=== PATIENT | male | born 1965 | race Caucasian/White ===

== ENCOUNTER 2025-02-19 07:10 | Observation (INO) | payer SELFPAY ==
[2025-02-19] VITALS (11 sets, daily range): BP systolic 129–150; BP diastolic 74–93; PULSE 75–88; RESP 13–18; TEMP 36.4–36.8; O2SAT 96–99; BMI 33.5
--- NOTE | ~2025-02-19 | CT_ITS ---
Non-contrast Head CT History: CVA Technique: Axial non-contrast imaging of the brain was performed. Dose reduction technique was used on this scan by utilizing automated exposure control and iterative reconstruction technique. The dose -length product (DLP) was 605.33 mGy-cm. Findings: There is no evidence of intracranial hemorrhage, mass lesion, or acute infarct. Brain par enchyma appears normal. The ventricles and subarachnoid spaces are normal in size. The calvarium ap pears normal. The visualized paranasal sinuses and mastoid air cells are clear. Impression: No significant abnormality seen. Case discussed with Dr. Oconnor at 7:30 AM on 02/19/2025. Reviewed, dictated and finalized at location . Impression: No significant abnormality seen. Case discussed with Dr. Oconnor at 7:30 AM on 02/19/2025.
--- NOTE | ~2025-02-19 | CT_ITS ---
CT ANGIOGRAM NECK AND HEAD History: CVA. Technique: Serial spiral axial images through the head and neck were obtained during arterial phase I V injection of 100 cc of Omnipaque 350. 3-D postprocessing and MIP images were then reconstructed on the remote workstation. Dose reduction technique was used on this scan by utilizing automated exposur e control and iterative reconstruction technique. The dose-length product (DLP) was 1154.24 mGy-cm. CTA neck findings: Bilateral vertebral arteries were patent. Bilateral common carotid, internal cuenca tid, and external carotid arteries are patent. There are small calcified plaques at the proximal righ t internal carotid artery without stenosis. There are also calcified plaques at the proximal left int ernal carotid artery, again without stenosis. No large vessel occlusion or stenosis seen. The proxima l right internal carotid artery demonstrates 0% stenosis relative to the normal distal artery lumen d iameter. The proximal left internal carotid artery demonstrates 0% stenosis relative to the normal di stal artery lumen diameter. CTA head findings: Distal vertebral arteries, basilar artery, and posterior cerebral arteries are pat ent. Distal internal carotid arteries, middle cerebral arteries, and anterior cerebral arteries are p atent. No large vessel occlusion or stenosis. No aneurysm. Impression: No significant vascular abnormality seen. Reviewed, dictated and finalized at location M. Impression: No significant vascular abnormality seen.
--- NOTE | ~2025-02-19 | MR_ITS ---
EXAMINATION: MR brain/brain stem wo con DATE: 02/19/2025 15:41 INDICATION: Left-sided numbness TECHNIQUE: Magnetic resonance imaging (MRI) of the brain and brainstem was performed without intraven ous contrast. Sequences included sagittal and axial T1-weighted SE, axial diffusion-weighted FS SE, a xial 3D SWAN, axial T2-weighted FLAIR, and axial T2-weighted FSE. Apparent diffusion coefficient (ADC ) maps were created. COMPARISON: Head CT and CT angiogram dated 03/15 FINDINGS: There are no areas of restricted diffusion to suggest acute infarction. No intracranial hemorrhage or abnormal intracranial mass lesion. There are no intraparenchymal signal abnormalities seen on the ot her pulse sequences. The ventricles are symmetric and normal in size. There are no abnormal extra-axi al fluid collections. Flow voids are seen in the cerebral arteries on the T2-weighted sequences consi stent with their expected patency. Visualized orbits and soft tissues are unremarkable. IMPRESSION: 1. Normal brain. No acute intracranial process. Reviewed, dictated and finalized at location B.
--- NOTE | ~2025-02-19 | XR_ITS ---
XR chest 1V portable 02/19/2025 08:02 Indication: CVA. Left-sided weakness. Procedure: AP portable chest Comparison: No prior studies for comparison. Findings: Status post median sternotomy for CABG. Cardiomegaly. Left basilar consolidation. No pleura l effusion or pneumothorax. No acute osseous abnormality. Impression: 1: Left basilar airspace disease may represent pneumonia and/or atelectasis. 2: Cardiomegaly. Reviewed, dictated and finalized at location A. Impression: 1: Left basilar airspace disease may represent pneumonia and/or atelectasis. 2: Cardiomegaly.
--- NOTE | 2025-02-19 07:14 | ECG_ITS ---
Test Date: 2025-02-19 07:35:24 Measurements Intervals Lillian Rate: 80 P: 43 IN: 172 QRS: -39 QRSD: 117 T: 18 QT: 441 QTc: 509 Interpretive Statements SINUS RHYTHM POSSIBLE RIGHT VENTRICULAR CONDUCTION DELAY [RSR (QR) IN V1/V2] MINIMAL VOLTAGE CRITERIA FOR LVH, CONSIDER NORMAL VARIANT [MEETS CRITERIA IN ONE OF: R(aVL), S(V1), R(V5), R(V5/V6)+S(V1)] POSSIBLE ANTERIOR MYOCARDIAL INFARCTION , PROBABLY OLD [30 ms Q WAVE IN V3/V4, OR R < 0.2 mV IN V4] No previous ECG available for comparison Electronically Signed On 02-20-2025 18:56:23 CDT by Gracie Vides
[2025-02-19 07:16] LABS: Glucose Point of Care 152 mg/dl (65-105)
--- NOTE | 2025-02-19 07:20 | ED.NEUROSD ---
HPI - Neuro Symptoms/Deficit General Chief Complaint: Suspected CVA Stated Complaint: 0620 LKW L arm&cheek numb, numb tongue, SMITH Time Seen by Provider: 02/19/25 07:19 History of Present Illness HPI Narrative: Patient 59-year-old gentleman presents emergency department with chief complaint of left-sided numbness. Patient reports around 620-630 this morning he had onset of numbness on the left side of his body including left side of his tongue patient states that he felt as though his unsteady on his feet whenever he tried to walk and reports that he has had a headache with this as well patient reports he has an extensive cardiac history reports that he is on Brilinta reports no prior history of stroke Related Data Allergies Allergy/AdvReac Type Severity Reaction Status Date / Time No Known Allergies Allergy Verified 02/19/25 07:13 Review of Systems Review of Systems: A 10 system review of systems was completed on the patient and is negative except for what is stated in the HPI. Nursing and ancillary documentation was reviewed. Exam Narrative: GENERAL: Well-appearing, well-nourished, and in no acute distress. HEAD: Normocephalic, atraumatic. EYES: PERRLA and EOMI. ENT: Nares clear, no rhinorrhea or epistaxis. Mucous membranes moist. NECK: Supple. CHEST: Clear to auscultation. No respiratory distress. HEART: Regular rate and rhythm. No murmur heard. Normal peripheral pulses. ABDOMEN: Soft, nontender, nondistended, normal active bowel sounds. EXTREMITIES: Normal range of motion. No edema. SKIN: Warm, dry, no rash. NEURO: No focal deficits except for slight decrease in sensation on the left upper arm and left face. Alert and oriented x3. PSYCH: Normal mood and affect. Course Vital Signs Vital signs: Vital Signs Temperature 36.6 C 02/19/25 07:32 Pulse Rate 80 02/19/25 07:32 Respiratory Rate 14 02/19/25 07:32 Blood Pressure 150/93 H 02/19/25 07:32 Pulse Oximetry 99 02/19/25 07:32 Oxygen Delivery Room Air 02/19/25 07:32 Temperature 36.6 C 02/19/25 07:32 Pulse Rate 75 02/19/25 08:50 Respiratory Rate 13 02/19/25 08:50 Blood Pressure 136/78 02/19/25 08:50 Pulse Oximetry 96 02/19/25 08:50 Oxygen Delivery Room Air 02/19/25 07:32 MDM - Neuro Symptoms/Deficit MDM Narrative Medical decision making narrative: Differential diagnosis include CVA, vertigo, electrolyte abnormality, Patient is currently NIH 0 the patient does have a altered sensation on the left side of the body but no change an actual sensation. Patient was able to ambulate with a steady 8 given the minimal symptoms with patient having NIH is 0 currently the patient does not meet thrombolytics criteria. The case was discussed with Neurology locally who also agreed the patient is not a thrombolytics candidate patient has no large vessel occlusion on CTA head and neck and recommended admitting the patient for observation locally Lab Data 02/19/25 07:20 02/19/25 07:24 Labs: Lab Results 02/19/25 02/19/25 02/19/25 Range/Units 07:14 07:20 07:24 WBC 5.0 (4.5-10.0) K/mm3 RBC 4.61 (4.6-6.20) M/mm3 Hgb 15.5 (14.0-18.0) g/dL Hct 45.5 (42.0-52.0) % MCV 98.7 (80-100) fl MCH 33.6 (26-34) pg MCHC 34.1 (32-36) g/dl RDW 12.4 (11.5-14.5) % Plt Count 171 (150-375) k/mm3 MPV 10.3 (7.4-10.4) fl Immature Gran % (Auto) 0.2 (0-0.5) % Neut % (Auto) 66.1 (45.5-73.1) % Lymph % (Auto) 22.5 (18.3-44.2) % [place] % (Auto) 7.2 (2.6-8.5) % Eos % (Auto) 3.2 (0-4.4) % Baso % (Auto) 0.8 (0.2-1.2) % Lymph # (Auto) 1.13 (0.9-3.2) K/mm3 [place] # (Auto) 0.4 (0.1-0.6) K/mm3 Eos # (Auto) 0.2 (0-0.3) K/mm3 Baso # (Auto) 0.0 (0.0-0.1) K/mm3 Abs Immat Gran (auto) 0.01 (0.00-0.031) K/mm3 Absolute Neuts (auto) 3.3 (1.3-6.7) K/mm3 Absolute Nucleated RBC 0.000 (0.0-0.012) K/mm3 Nucleated RBC % 0.0 (0.0-0.2) % PT 13.4 (11.1-14.7) Seconds INR 1.0 APTT 27.5 (22.3-36.8) Seconds Sodium 140 (137-145) mmol/L Potassium 4.1 (3.4-5.0) mmol/L Chloride 103 (98-107) mmol/L Carbon Dioxide 25 (22-30) mmol/L Anion Gap 12 (4-12) mmol/L BUN 14 (9-20) mg/dL Creatinine 1.04 1.20 (0.7-1.3) mg/dL Estim Creat Clear Calc 75 Not Reportable ml/min Estimated GFR > 60 > 60 (59 - ) Glucose 152 H (65-110) mg/dL POC Capillary Glucose 152 H (65-105) mg/dl Calcium 9.3 (8.4-10.2) mg/dL Total Bilirubin 0.8 (0.2-1.3) mg/dL AST 34 (17-59) U/L ALT 42 (6-50) U/L Alkaline Phosphatase 70 (38-126) U/L Troponin I < 0.012 (0.000-0.034) ng/mL Total Protein 7.0 (6.3-8.2) g/dL Albumin 4.6 (3.5-5.1) g/dL Discharge Plan Discharge Clinical Impression: Alterations of sensations Patient Disposition: Still a Patient Condition: Stable Patient Language: [place] Follow-up/Referrals: UNKNOWN,DOCTOR [Primary Care Provider] - Time of Disposition: 08:03 Quality Stroke Date of last known normal: 02/19/25 Time of last known normal: 06:20
[2025-02-19 07:28] LABS: Estimated Glomerular Filt Rate > 60
[2025-02-19 07:34] LABS: Basophils Percent Auto 0.8 % (0.2-1.2); Eosinophils Absolute Auto 0.2 K/mm3 (0-0.3); Eosinophils Percent Auto 3.2 % (0-4.4); Hematocrit 45.5 % (42.0-52.0); Hemoglobin 15.5 g/dL (14.0-18.0); Immature Granulocyte Absolute 0.01 K/mm3 (0.00-0.031); Immature Granulocyte Percent A 0.2 % (0-0.5); Lymphocytes Absolute Auto 1.13 K/mm3 (0.9-3.2); Lymphocytes Percent Auto 22.5 % (18.3-44.2); Mean Corpuscular HGB Conc 34.1 g/dl (32-36); Mean Corpuscular Hemoglobin 33.6 pg (26-34); Mean Corpuscular Volume 98.7 fl (80-100); Mean Platelet Volume 10.3 fl (7.4-10.4); Monocytes Absolute Auto 0.4 K/mm3 (0.1-0.6); Monocytes Percent Auto 7.2 % (2.6-8.5); Neutrophils Absolute Auto 3.3 K/mm3 (1.3-6.7); Neutrophils Percent Auto 66.1 % (45.5-73.1); Platelet Count Result 171 k/mm3 (150-375); Red Blood Count 4.61 M/mm3 (4.6-6.20); Red Cell Distribution Width 12.4 % (11.5-14.5)
[2025-02-19 07:37] LABS: Alanine Aminotransferase 42 U/L (6-50); Albumin Level 4.6 g/dL (3.5-5.1); Alkaline Phosphatase 70 U/L (38-126); Anion Gap 12 mmol/L (4-12); Aspartate Amino Transferase 34 U/L (17-59); Bilirubin,Total 0.8 mg/dL (0.2-1.3); Blood Urea Nitrogen 14 mg/dL (9-20); Calcium 9.3 mg/dL (8.4-10.2); Carbon Dioxide 25 mmol/L (22-30); Chloride 103 mmol/L (98-107); Estimated CRCL calculation 75 ml/min; Estimated Glomerular Filt Rate > 60; Glucose 152 mg/dL (65-110); Potassium 4.1 mmol/L (3.4-5.0); Sodium 140 mmol/L (137-145)
[2025-02-19 07:40] LABS: Prothrombin Time 13.4 Seconds (11.1-14.7)
[2025-02-19 07:41] LABS: Partial Thromboplastin Time 27.5 Seconds (22.3-36.8)
[2025-02-19 07:49] LABS: Troponin I < 0.012 ng/mL (0.000-0.034)
--- OUTSIDE RECORDS SUMMARY | 2025-02-19 08:35 | XMS_ITS | Patient Health Record ---
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 Role Phone Richkush Chago Unavailable [phone] Kahlil Perez Unavailable [phone] Kathie Doyle Unavailable [phone] Mony Romero Unavailable [phone] Allergies No Known Allergies Results Component Value Reference Range Notes UDT Reviewed date:10/02/2024 10:19:49 AM Interpretation: Performing Lab: Notes/Report: THC POS 0 - 50 ng/ml Cocaine NEG 0 - 300 ng/ml Amphetamine NEG 0 - 1000 ng/ml Buprenorphine (BUP) NEG 0 - 10 ng/ml Secobarbital (Bar) NEG 0 - 300 ng/ml Oxazepam (BZO) NEG 0 - 300 ng/ml 7-mqtgbummam-8,7-bffmgqyg-1,3-diphenylpyrrolidine (SARAH P) NEG 0 - 300 ng/ml Methamphetamine (MET) NEG 0 - 1000 ng/ml Methylenedioxymethamphetamine (MDMA) NEG 0 - 500 ng/ml Morphine (MOP 300/[id number]) NEG 0 - 300 ng/ml Methadone (MTD) NEG 0 - 300 ng/ml Phencyclidine (PCP) NEG 0 - 25 ng/ml Nortriptyline (TCA) NEG 0 - 1000 ng/ml Oxycodone NEG 0 - 300 ng/ml x NEG 0 - 300 ng/ml Reason For Referral No Information Medications Medication SIG (Take, Route, Frequency, Duration) Notes Start Date End Date Status Metoprolol Succinate ER 100 MG TAKE 1 TABLET BY MOUTH EVERY DAY Oral for 90 Days Unknown Fenofibrate 200 MG 1 capsule with a allison l Orally Once a day Unknown hydrOXYzine HCl 25 MG 1 tablet as needed Orally three times a day for 90 days As needed 10/02/2024 Unknown metFORMIN HCl ER 500 MG TAKE 2 TABLETS B Y MOUTH TWICE DAILY Oral for 90 Days Unknown Pantoprazole Sodium 40 MG TAKE 1 TABLET BY MOUTH EVERY DAY Oral for 90 Days Unknown Ezetimibe 10 MG Oral for 90 Days Unknown Brilinta 90 MG TAKE ONE TABLET BY M OUTH TWICE A DAY Oral for 90 Days Unknown busPIRone HCl 10 MG 1 tablet Oral three times a day for 90 days 03/24/2025 Unknown Rosuvastatin Calcium 20 MG Oral for 90 Days Unknown Aspirin 81 81 MG 1 tablet Orally Once a day Unknown Ozempic (2 MG/DOSE) 8 MG/3ML INJECT 2MG UNDER THE SKIN ONCE A WEEK Subcutaneous for 28 Days Unknown Enalapril Maleate 10 MG TAKE 2 TABLETS B Y MOUTH DAILY Oral for 90 Days Unknown traZODone HCl 50 MG 1 tablet at bedtime as needed Orally Once a day for 90 days Unknown Ranolazine ER 1000 MG TAKE 1 TABLET BY M OUTH TWICE DAILY Oral Twice a day for 90 days Unknown Escitalopram Oxalate 20 MG 1 tablet Oral Once a day for 90 days Unknown Jardiance 10 MG TAKE 1 TABLET BY FEDERICO TH DAILY Oral for 30 Days Unknown Social History Tobacco Use: Social History Observation Description Date Details (start date - stop date) Former Smoker NA - NA Sex Assigned At : Social History Observation Description Sex Assigned At Male Household Question Answer Notes Marital status: Number of adults in household: 2 Tobacco Control (Standard) Question Answer Notes Tobacco use: Former smoker Additional Findings: Tobacco non-user Nonsmoker for medical reasons AUDIT-C (Standard) Question Answer Notes Did you have a drink contain ing alcohol in the past year? Yes How often did you have six o r more drinks on one occasion in the past year? 4 or more times a week (4 points) How many drinks did you have on a typical day when you were drinking in the past year? 5 or 6 drinks (2 points) How often did you have a dri nk containing alcohol in the past year? Daily or almost daily (4 points) Problems Problem Type SNOMED Code ICD Code Onset Dates Problem Status W/U Status Risk Notes Problem Alcohol dependence (15343233) Alcohol dependence, uncomplicated (F10.20) Active confirmed Problem 8991303 Primary insomnia (F51.01) Active confirmed Problem Generalized anxiety disorder (25444192) RACHANA (generalized anxiety disorder) (F41.1) Active confirmed Problem 44587519 Severe episode o f recurrent major depressive disorder, without psychotic features (F33.2) Active confirmed Problem 32930346 MDD (major depressive disorder), recurrent episode, moderate (F33.1) Active confirmed Problem Nondependent cannabis abuse (276301247) Marijuana use (F12.90) Active confirmed Problem Alcohol abuse (78868516) Alcohol abuse (F10.10) Active confirmed Vital Signs Heart Rate 82 /min 12/26/2024 Blood pressure diastolic 83 mm Hg 12/26/2024 Weight-kg 95.26 kg 12/26/2024 Blood pressure systolic 134 mm Hg 12/26/2024 Weight 210.0 lbs 12/26/2024 Encounters Encounter Location Date Provider Diagnosis [facility] [address] [facility] [address] [place] [address] 10/02/2024 [facility] Severe episode of recurrent major depressive disorder, without psychotic features F33.2 ; RACHANA (generalized anxiety disorder) F41.1 ; Primary insomnia F51.01 and Marijuana use F12.90 [facility] [address] [address] 10/03/2024 Mony Hinderliter RACHANA (generalized anxiety disorder) F41.1 ; Severe episode of recurrent major depressive disorder, without psychotic features F33.2 ; Marijuana use F12.90 ; Primary insomnia F51.01 and Alcohol abuse F10.10 [facility] [address] [address] 10/06/2024 Mony Hinderliter Severe episode of recurrent major depressive disorder, without psychotic features F33.2 ; RACHANA (generalized anxiety disorder) F41.1 and Alcohol abuse F10.10 [employer] [place] [address] 10/20/2024 Mony Hinderliter Severe episode of recurrent major depressive disorder, without psychotic features F33.2 ; RACHANA (generalized anxiety disorder) F41.1 ; Alcohol abuse F10.10 and Marijuana use F12.90 [employer] [place] [address] 10/28/2024 Mony Hinderliter Severe episode of recurrent major depressive disorder, without psychotic features F33.2 ; RACHANA (generalized anxiety disorder) F41.1 and Alcohol abuse F10.10 [facility], [employer] [address] [place] [address] 11/05/2024 Chago Villanuevab RACHANA (generalized anxiety disorder) F41.1 ; MDD (major depressive disorder), recurrent episode, moderate F33.1 ; Primary insomnia F51.01 ; Alcohol abuse F10.10 and Marijuana use F12.90 [facility] [employer] [address] [place] [address] 11/19/2024 Mony Hinderliter Severe episode of recurrent major depressive disorder, without psychotic features F33.2 ; RACHANA (generalized anxiety disorder) F41.1 ; Alcohol abuse F10.10 and Marijuana use F12.90 [facility], [employer] [address] [place] [address] 12/02/2024 Mony Hinderliter Severe episode of recurrent major depressive disorder, without psychotic features F33.2 ; RACHANA (generalized anxiety disorder) F41.1 and Alcohol abuse F10.10 [facility], [employer] [address] [place] [address] 12/19/2024 Mony Hinderliter [facility], [employer] [address] [place] [address] 12/22/2024 Mony Hinderliter Severe episode of recurrent major depressive disorder, without psychotic features F33.2 ; RACHANA (generalized anxiety disorder) F41.1 ; Alcohol abuse F10.10 ; Marijuana use F12.90 and Primary insomnia F51.01 [employer] [address] [place] [address] 12/24/2024 Kathieluis Kleinag Severe episode of recurrent major depressive disorder, without psychotic features F33.2 ; RACHANA (generalized anxiety disorder) F41.1 ; Primary insomnia F51.01 and Alcohol dependence, uncomplicated F10.20 [employer] [address] [place] [address] 12/26/2024 Kahlil Perez Major depressive disorder, recurrent severe without psychotic features F33.2 and Generalized anxiety disorder F41.1 [facility], [employer] [address] [place] [address] 01/02/2025 Mony Romero Severe episode of recurrent major depressive disorder, without psychotic features F33.2 ; Alcohol abuse F10.10 ; RACHANA (generalized anxiety disorder) F41.1 and Encounter for screening for depression Z13.31 [facility], [place] [address] [place] [address] 01/08/2025 Kahlil Perez Encounter for screening for depression Z13.31 ; Major depressive disorder, recurrent severe without psychotic features F33.2 and Generalized anxiety disorder F41.1 [facility], [facility] [address] [place] [address] 01/23/2025 Kahlil Perez Encounter for screening for depression Z13.31 ; Major depressive disorder, recurrent severe without psychotic features F33.2 and Generalized anxiety disorder F41.1 [facility], [facility] [address] [place] [address] 02/18/2025 Kathie Doyle [facility], [facility] [address] [place] [address] 10/07/2024 Chago Clubb [facility], [facility] [address] [place] [address] 10/28/2024 Chago Clubb [facility], [facility] [address] [place] [address] 11/03/2024 Chago Clubb [facility], [facility] [address] [place] [address] 11/10/2024 Chago Clubb [facility], [facility] [address] [place] [address] 12/10/2024 Chago Clubb [facility], [facility] [address] [place] [address] 12/12/2024 Chago Clubb [facility], [facility] [address] [place] [address] 12/02/2024 Chago Clubb [facility], [facility] [address] [place] [address] 12/08/2024 Chago Clubb [facility], [facility] [address] [place] [address] 12/15/2024 Chago Clubb [facility], [facility] [address] [place] [address] 01/02/2025 Chago Clubb [facility], [facility] [address] [place] [address] 01/02/2025 Chago Clubb [facility], [facility] [address] [place] [address] 01/06/2025 Chago Clubb [facility], [facility] [address] [place] [address] 01/07/2025 [facility] Assessments Encounter Date Diagnosis (ICD Code) Assessment Notes Treatment Notes Treatment Clinical Notes Section Notes 12/24/2024 Severe episode of recurrent major depressive disorder, without psychotic features (ICD-10 - F33.2) 12/26/2024 Major depressive disorder, recurrent severe without psychotic features (ICD-10 - F33.2) 12/26/2024 Generalized anxiety disorder (ICD-10 - F41.1) 01/02/2025 Severe episode of recurrent major depressive disorder, without psychotic features (ICD-10 - F33.2) 1. Suicidal Ideation - Patient reports passive suicidal ideation without intent or plan, expressing feeling that he didn't really believe that [he] deserved to live any longer - Denies active suicidal thoughts or intentions to harm himself, stating I'm nowhere near, would never do something to hurt myself - Recent interaction with [employer] resulted in statement about putting a gun in mouth, leading to police wellness check - Incident appears to be impulsive verbal outburst rather than genuine threat, as patient states no weapons ownership -Address self sabotaging behaviors 2. Anger Management Issues - Demonstrates ongoing difficulties with anger management, evidenced by recent outbursts - Describes an explosion during interaction with [employer], comparing to September incident with mechanical project manager - Expresses concern about ability to control anger, stating I can't act like this - Worries about potentially blowing up at work -Engage in stress management skills including regular exercise 3. Alcohol Use - Reports recent alcohol use as coping mechanism - Attempted to stop drinking but relapsed after 24-48 hours following stressful event - Acknowledges problematic drinking, stating I didn't fall off the wagon, I jumped headfirst off the wagon -Encourage attendance to SMART Recovery or AA meetings 4. 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 Anxiety and Panic Symptoms - Reports experiencing ongoing panic symptoms for past three days, describing it as a little panic thing - Taking prescribed medications about an hour before session to manage symptoms - Anxiety appears exacerbated by rumination on current life stressors -Engage in anxiety management skills including TIP (Temperature, Intense exercise, Paced breathing, Paired muscle relaxation) 6. Relationship Stress - Reports has been in bed for two days following police wellness check incident - Describes as embarrassed and not engaging in household activities - Feels conflicted about marital vows and ability to support through her mental health challenges -Kamaljit states he would like to apologize to his 01/02/2025 Alcohol abuse (ICD-10 - F10.10) 1. Suicidal Ideation - Patient reports passive suicidal ideation without intent or plan, expressing feeling that he didn't really believe that [he] deserved to live any longer - Denies active suicidal thoughts or intentions to harm himself, stating I'm nowhere near, would never do something to hurt myself - Recent interaction with [employer] resulted in statement about putting a gun in mouth, leading to police wellness check - Incident appears to be impulsive verbal outburst rather than genuine threat, as patient states no weapons ownership -Address self sabotaging behaviors 2. Anger Management Issues - Demonstrates ongoing difficulties with anger management, evidenced by recent outbursts - Describes an explosion during interaction with [employer], comparing to September incident with mechanical project manager - Expresses concern about ability to control anger, stating I can't act like this - Worries about potentially blowing up at work -Engage in stress management skills including regular exercise 3. Alcohol Use - Reports recent alcohol use as coping mechanism - Attempted to stop drinking but relapsed after 24-48 hours following stressful event - Acknowledges problematic drinking, stating I didn't fall off the wagon, I jumped headfirst off the wagon -Encourage attendance to SMART Recovery or AA meetings 4. 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 Anxiety and Panic Symptoms - Reports experiencing ongoing panic symptoms for past three days, describing it as a little panic thing - Taking prescribed medications about an hour before session to manage symptoms - Anxiety appears exacerbated by rumination on current life stressors -Engage in anxiety management skills including TIP (Temperature, Intense exercise, Paced breathing, Paired muscle relaxation) 6. Relationship Stress - Reports has been in bed for two days following police wellness check incident - Describes as embarrassed and not engaging in household activities - Feels conflicted about marital vows and ability to support through her mental health challenges -Kamaljit states he would like to apologize to his 01/08/2025 Major depressive disorder, recurrent severe without psychotic features (ICD-10 - F33.2) 12/24/2024 RACHANA (generalized anxiety disorder) (ICD-10 - F41.1) 01/08/2025 Encounter for screening for depression (ICD-10 - Z13.31) 01/23/2025 Major depressive disorder, recurrent severe without psychotic features (ICD-10 - F33.2) 01/23/2025 Encounter for screening for depression (ICD-10 - Z13.31) 10/02/2024 RACHANA (generalized anxiety disorder) (ICD-10 - F41.1) 1. Major Depressive Disorder - Patient reports depression at 8-9 out of 10 - Plan: Increase escitalopram to 20 mg daily. Encourage him to engage in therapy. Recommend lifestyle changes, including exercise and adopting a Mediterranean diet. 2. Generalized Anxiety Disorder - Patient reports high anxiety levels and frequent panic attacks - Plan: Increase BuSpar to three times a day. Prescribe hydroxyzine as needed for anxiety, with caution for potential side effects. Encourage him to engage in therapy. Recommend lifestyle changes, including exercise and adopting a Mediterranean diet. 3. Panic Disorder - Patient reports panic attacks lasting up to 4 hours, occurring in the middle of the night and every morning - Plan: Continue BuSpar three times a day. Prescribe hydroxyzine as needed for anxiety, with caution for potential side effects. Encourage him to engage in therapy. Educate him on recognizing panic attacks and utilizing coping strategies. 4. Insomnia - Patient reports getting a solid 8 hours of sleep - Plan: Continue trazodone 50 mg at night. Encourage him to maintain a consistent sleep schedule and practice good sleep hygiene. 5. Coronary Artery Disease - Patient reports history of CABG in 2020 and multiple stent placements - Plan: Continue current cardiac medications as prescribed. Encourage him to engage in regular exercise and adopt a Mediterranean diet. Recommend regular follow-up with neon glass bender. 6. Type 2 Diabetes Mellitus - Patient reports irregular use of Ozempic and Jardiance due to supply issues - Plan: Continue metformin, Ozempic, and Jardiance as prescribed. Encourage him to discuss medication adjustments with his primary care provider. Recommend adopting a Mediterranean diet and engaging in regular exercise. 7. Hypertension - Plan: Continue metoprolol and enalapril as prescribed. Encourage him to monitor blood pressure regularly at home. Recommend lifestyle changes, including exercise and adopting a Mediterranean diet. 8. Dyslipidemia - Plan: Continue rosuvastatin, ezetimibe, and fenofibrate as prescribed. Encourage him to adopt a Mediterranean diet and engage in regular exercise. 9. Gastroesophageal Reflux Disease - Plan: Continue pantoprazole as prescribed. Educate him on recognizing symptoms of acid reflux and differentiating from cardiac chest pain. 10. Alcohol Use Disorder - Patient reports drinking too much - Plan: Encourage him to seek therapy and support for alcohol cessation. Educate him on the negative effects of alcohol on mental health and overall well-being. 11. Coping Skills and Stress Management - Patient reports using food as a coping mechanism and binge eating - Plan: Encourage him to engage in therapy to develop healthy coping strategies. Recommend regular exercise and adopting a Mediterranean diet as part of stress management. Follow-up: - Schedule a follow-up appointment in 4-6 weeks to assess the patient's progress and medication adjustments - Encourage him to contact the clinic or healthcare professional if symptoms worsen or new concerns arise - Provide information about the [facility] crisis hotline for immediate mental health support 10/02/2024 Severe episode of recurrent major depressive disorder, without psychotic features (ICD-10 - F33.2) 1. Major Depressive Disorder - Patient reports depression at 8-9 out of 10 - Plan: Increase escitalopram to 20 mg daily. Encourage him to engage in therapy. Recommend lifestyle changes, including exercise and adopting a Mediterranean diet. 2. Generalized Anxiety Disorder - Patient reports high anxiety levels and frequent panic attacks - Plan: Increase BuSpar to three times a day. Prescribe hydroxyzine as needed for anxiety, with caution for potential side effects. Encourage him to engage in therapy. Recommend lifestyle changes, including exercise and adopting a Mediterranean diet. 3. Panic Disorder - Patient reports panic attacks lasting up to 4 hours, occurring in the middle of the night and every morning - Plan: Continue BuSpar three times a day. Prescribe hydroxyzine as needed for anxiety, with caution for potential side effects. Encourage him to engage in therapy. Educate him on recognizing panic attacks and utilizing coping strategies. 4. Insomnia - Patient reports getting a solid 8 hours of sleep - Plan: Continue trazodone 50 mg at night. Encourage him to maintain a consistent sleep schedule and practice good sleep hygiene. 5. Coronary Artery Disease - Patient reports history of CABG in 2020 and multiple stent placements - Plan: Continue current cardiac medications as prescribed. Encourage him to engage in regular exercise and adopt a Mediterranean diet. Recommend regular follow-up with neon glass bender. 6. Type 2 Diabetes Mellitus - Patient reports irregular use of Ozempic and Jardiance due to supply issues - Plan: Continue metformin, Ozempic, and Jardiance as prescribed. Encourage him to discuss medication adjustments with his primary care provider. Recommend adopting a Mediterranean diet and engaging in regular exercise. 7. Hypertension - Plan: Continue metoprolol and enalapril as prescribed. Encourage him to monitor blood pressure regularly at home. Recommend lifestyle changes, including exercise and adopting a Mediterranean diet. 8. Dyslipidemia - Plan: Continue rosuvastatin, ezetimibe, and fenofibrate as prescribed. Encourage him to adopt a Mediterranean diet and engage in regular exercise. 9. Gastroesophageal Reflux Disease - Plan: Continue pantoprazole as prescribed. Educate him on recognizing symptoms of acid reflux and differentiating from cardiac chest pain. 10. Alcohol Use Disorder - Patient reports drinking too much - Plan: Encourage him to seek therapy and support for alcohol cessation. Educate him on the negative effects of alcohol on mental health and overall well-being. 11. Coping Skills and Stress Management - Patient reports using food as a coping mechanism and binge eating - Plan: Encourage him to engage in therapy to develop healthy coping strategies. Recommend regular exercise and adopting a Mediterranean diet as part of stress management. Follow-up: - Schedule a follow-up appointment in 4-6 weeks to assess the patient's progress and medication adjustments - Encourage him to contact the clinic or healthcare professional if symptoms worsen or new concerns arise - Provide information about the [facility] crisis hotline for immediate mental health support 10/03/2024 RACHANA (generalized anxiety disorder) (ICD-10 - F41.1) Marital Status: Living Arrangement: lives with Judith and two dogs. Children: 2 adult children Support System: a couple of good friends. Noted that has brought up divorce as a possibility. 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 History: Denied Legal History: Denied Family History of MH/RADHA: None reported Physical Medical Conditions: triple bypass surgery and multiple stints. Diabetes. Concerns with blood pressure. Sleep apnea Spiritual Beliefs: None that I would put a label on Suicidal Ideation/Self Harm: Denied Homicidal Ideation: Denied Access to means (firearms etc): Denied Chief Complaint: my attitude about everything has gone completely downhill. I really don't care if I lose my job or end up homeless. I am out of sorts. Anxiety: Notes feelings of something bad will happen if he even goes near his work computer. History of panic attacks 1-2x a year. Reported that sometimes they will now last overnight, heart racing, thoughts of , difficulty breathing, headaches, feels his face gets hot. Avoiding anxious thoughts. Depression: Apathetic mood, indifferent. Isolation for the past few years at work due to working from home. Believes that he is self-sabotaging. Anger: Noted sending impulsive emails that called another co-worker an idiot. Denied yelling or physical altercations. Psychosis: Denied Sleep: Sleeps 8 hours a night. Has sleep apnea and noted that bipap machine is dysregulated and he will need to go in for another sleep study. Appetite: Reported eating overeating. States he will eat large meals and constantly eat in between. Suspects eating [id number] calories a day and not gaining weight. Substance Use (type, last use, amount, frequency, withdrawal symptoms): alcohol, 5 nights a week 4-5 drinks. Marijuana on occasion 1x a week, notes he does not feel the need to use often. Gambling/Other Addictive Behaviors: Denied concerns with gambling. Eating is a concern. ADLs (Hygiene, Chores, Cooking, Shopping): Reports difficulty in completing tasks. Reports the room that he is sleeping in is a mess . Noted not showering as often as he used to. Interests/Skills/H obbies: Math is a strength. Playing pool including in tournaments. Goal(s) for Therapy: I have no idea. I've just thought about coming to therapy. I know there is something wrong that I am not doing things correctly. I need to work on me. 1. Major Depressive Disorder - Continue with the current medication regimen as directed by the general practitioner. - Schedule a follow-up appointment before the to explore job-related plans and strategies for moving forward. - Encourage establishing a daily routine and setting small, achievable goals. 2. Anxiety and Panic Attacks - Maintain the prescribed dosage of buspirone, taking it three times daily. - Consider the addition of relaxation techniques, such as deep breathing exercises and mindfulness practices, to manage symptoms. - Monitor the frequency and severity of panic attacks during subsequent appointments. 3. Alcohol Use Disorder - Advise a reduction in alcohol consumption, moving towards abstinence. - Discuss the potential benefits of attending support groups or seeking additional resources for alcohol use management. - Track progress in reducing alcohol intake in future follow-ups. 4. Sleep Apnea and BiPAP Issues - Recommend scheduling a sleep study to reassess BiPAP settings for optimal treatment. - Encourage adherence to a consistent sleep schedule and the practice of good sleep hygiene. 5. Unhealthy Eating Habits and Weight Gain - Suggest exploring the Mediterranean diet cookbook for healthier meal options. - Advise monitoring portion sizes and being mindful of caloric intake. 6. Sedentary Lifestyle and Lack of Exercise - Recommend finding a gym to establish a regular exercise routine. - Encourage participation in enjoyable physical activities, such as playing pool or gardening. 7. Marital Issues - Promote open communication with the spouse and the consideration of couples therapy to address relationship concerns. - Monitor the impact of marital issues on mental health in subsequent appointments. 8. Job-related Stress and Burnout - Discuss strategies for improving work-life balance and managing job-related stress at the follow-up appointment before . - Encourage contemplation of alternative job options or a temporary leave of absence if deemed necessary. 9. Social Isolation - Encourage maintaining connections with friends and seeking new social opportunities to build a support network. - Monitor progress in enhancing social connections during future follow-ups. 10/03/2024 Severe episode of recurrent major depressive disorder, without psychotic features (ICD-10 - F33.2) Marital Status: Living Arrangement: lives with Judith and two dogs. Children: 2 adult children Support System: a couple of good friends. Noted that has brought up divorce as a possibility. 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 History: Denied Legal History: Denied Family History of MH/RADHA: None reported Physical Medical Conditions: triple bypass surgery and multiple stints. Diabetes. Concerns with blood pressure. Sleep apnea Spiritual Beliefs: None that I would put a label on Suicidal Ideation/Self Harm: Denied Homicidal Ideation: Denied Access to means (firearms etc): Denied Chief Complaint: my attitude about everything has gone completely downhill. I really don't care if I lose my job or end up homeless. I am out of sorts. Anxiety: Notes feelings of something bad will happen if he even goes near his work computer. History of panic attacks 1-2x a year. Reported that sometimes they will now last overnight, heart racing, thoughts of , difficulty breathing, headaches, feels his face gets hot. Avoiding anxious thoughts. Depression: Apathetic mood, indifferent. Isolation for the past few years at work due to working from home. Believes that he is self-sabotaging. Anger: Noted sending impulsive emails that called another co-worker an idiot. Denied yelling or physical altercations. Psychosis: Denied Sleep: Sleeps 8 hours a night. Has sleep apnea and noted that bipap machine is dysregulated and he will need to go in for another sleep study. Appetite: Reported eating overeating. States he will eat large meals and constantly eat in between. Suspects eating [id number] calories a day and not gaining weight. Substance Use (type, last use, amount, frequency, withdrawal symptoms): alcohol, 5 nights a week 4-5 drinks. Marijuana on occasion 1x a week, notes he does not feel the need to use often. Gambling/Other Addictive Behaviors: Denied concerns with gambling. Eating is a concern. ADLs (Hygiene, Chores, Cooking, Shopping): Reports difficulty in completing tasks. Reports the room that he is sleeping in is a mess . Noted not showering as often as he used to. Interests/Skills/H obbies: Math is a strength. Playing pool including in tournaments. Goal(s) for Therapy: I have no idea. I've just thought about coming to therapy. I know there is something wrong that I am not doing things correctly. I need to work on me. 1. Major Depressive Disorder - Continue with the current medication regimen as directed by the general practitioner. - Schedule a follow-up appointment before the to explore job-related plans and strategies for moving forward. - Encourage establishing a daily routine and setting small, achievable goals. 2. Anxiety and Panic Attacks - Maintain the prescribed dosage of buspirone, taking it three times daily. - Consider the addition of relaxation techniques, such as deep breathing exercises and mindfulness practices, to manage symptoms. - Monitor the frequency and severity of panic attacks during subsequent appointments. 3. Alcohol Use Disorder - Advise a reduction in alcohol consumption, moving towards abstinence. - Discuss the potential benefits of attending support groups or seeking additional resources for alcohol use management. - Track progress in reducing alcohol intake in future follow-ups. 4. Sleep Apnea and BiPAP Issues - Recommend scheduling a sleep study to reassess BiPAP settings for optimal treatment. - Encourage adherence to a consistent sleep schedule and the practice of good sleep hygiene. 5. Unhealthy Eating Habits and Weight Gain - Suggest exploring the Mediterranean diet cookbook for healthier meal options. - Advise monitoring portion sizes and being mindful of caloric intake. 6. Sedentary Lifestyle and Lack of Exercise - Recommend finding a gym to establish a regular exercise routine. - Encourage participation in enjoyable physical activities, such as playing pool or gardening. 7. Marital Issues - Promote open communication with the spouse and the consideration of couples therapy to address relationship concerns. - Monitor the impact of marital issues on mental health in subsequent appointments. 8. Job-related Stress and Burnout - Discuss strategies for improving work-life balance and managing job-related stress at the follow-up appointment before the . - Encourage contemplation of alternative job options or a temporary leave of absence if deemed necessary. 9. Social Isolation - Encourage maintaining connections with friends and seeking new social opportunities to build a support network. - Monitor progress in enhancing social connections during future follow-ups. 10/06/2024 RACHANA (generalized anxiety disorder) (ICD-10 - F41.1) 1. Major Depressive Disorder - Continue with the current medication regimen and monitor its effectiveness. - Schedule a follow-up appointment in early October to evaluate the response to medication. - Encourage the establishment of a daily routine to enhance mood and productivity. - Recommend creating distinct work and sleep environments upon returning to work. - Consider a referral to a support group for additional social support. 2. Marital and Family Stressors - Promote open communication with the patient's regarding each other's mental health struggles and needs. - Suggest that the patient's pursue her own mental health evaluation and treatment, considering her family history and present symptoms. - Recommend couples therapy to work through relationship issues and enhance communication. 3. Work-related Stress - Assist the patient in securing additional medical leave through FMLA documentation. - Encourage discussions with HR about commission concerns and to clarify financial expectations. - Explore potential long-term career paths and strategies for achieving work-life balance. 4. Alcohol Use - Keep track of alcohol consumption and support efforts to decrease intake. - If alcohol use escalates, consider recommending a support group or consulting a substance abuse counselor. 5. Nutrition and Lifestyle - Motivate the patient to adopt healthier eating patterns and partake in regular physical activity. - Discuss stress management techniques, including mindfulness and gratitude exercises. Follow-up: - Arrange therapy sessions bi-weekly to assess progress and tackle persistent issues. - Modify the treatment plan as necessary, based on the patient's feedback and changing needs. 10/06/2024 Severe episode of recurrent major depressive disorder, without psychotic features (ICD-10 - F33.2) 1. Major Depressive Disorder - Continue with the current medication regimen and monitor its effectiveness. - Schedule a follow-up appointment in early October to evaluate the response to medication. - Encourage the establishment of a daily routine to enhance mood and productivity. - Recommend creating distinct work and sleep environments upon returning to work. - Consider a referral to a support group for additional social support. 2. Marital and Family Stressors - Promote open communication with the patient's regarding each other's mental health struggles and needs. - Suggest that the patient's pursue her own mental health evaluation and treatment, considering her family history and present symptoms. - Recommend couples therapy to work through relationship issues and enhance communication. 3. Work-related Stress - Assist the patient in securing additional medical leave through FMLA documentation. - Encourage discussions with HR about commission concerns and to clarify financial expectations. - Explore potential long-term career paths and strategies for achieving work-life balance. 4. Alcohol Use - Keep track of alcohol consumption and support efforts to decrease intake. - If alcohol use escalates, consider recommending a support group or consulting a substance abuse counselor. 5. Nutrition and Lifestyle - Motivate the patient to adopt healthier eating patterns and partake in regular physical activity. - Discuss stress management techniques, including mindfulness and gratitude exercises. Follow-up: - Arrange therapy sessions bi-weekly to assess progress and tackle persistent issues. - Modify the treatment plan as necessary, based on the patient's feedback and changing needs. 10/20/2024 RACHANA (generalized anxiety disorder) (ICD-10 - F41.1) 1. Depression - Continue with the current medication regimen and consult the prescribing physician regarding the dosing schedule of the new medication. Chago informed client medication is as needed and should take effect in 20 minutes. - Aim to monitor and reduce excessive napping to improve sleep patterns. - Consider the daily use of a light box for 30 minutes to enhance mood and energy levels. - Encourage engagement in physical activities, such as gym membership or participation in free yoga classes. - Explore resources at the local library for audiobooks and materials that support mental well-being. 2. Anxiety - Foster open communication with the spouse about individual mental health needs and explore potential activities to do together. - Formulate a plan for re-entering the workforce, including resume updates and the exploration of alternative employment opportunities if required. - Tackle issues related to task completion by challenging negative beliefs and reinforcing the deserved sense of accomplishment. 3. Alcohol Consumption - Set a goal to reduce and eventually stop alcohol intake, noting its long-term contribution to depression. - Seek out social engagements that do not center around alcohol, such as participating in pool tournaments or gatherings with non-drinking friends. 4. Sleep Disturbances - Establish and adhere to a consistent sleep schedule while avoiding excessive napping. - Keep track of how medications affect sleep quality and discuss any issues with the prescribing physician. 5. Cardiovascular Health - Engage in an upcoming drug trial focused on heart health and adhere to any recommended treatment protocols. - Opt for healthier lifestyle choices, including regular exercise, a balanced diet, and the cessation of smoking and alcohol use. Follow-up: - Arrange a follow-up appointment on the to evaluate progress and discuss the potential for returning to work on the . - In the interim, prioritize self-care, seek mental health support, and implement the strategies outlined for improvement. 10/20/2024 Severe episode of recurrent major depressive disorder, without psychotic features (ICD-10 - F33.2) 1. Depression - Continue with the current medication regimen and consult the prescribing physician regarding the dosing schedule of the new medication. Chago informed client medication is as needed and should take effect in 20 minutes. - Aim to monitor and reduce excessive napping to improve sleep patterns. - Consider the daily use of a light box for 30 minutes to enhance mood and energy levels. - Encourage engagement in physical activities, such as gym membership or participation in free yoga classes. - Explore resources at the local library for audiobooks and materials that support mental well-being. 2. Anxiety - Foster open communication with the spouse about individual mental health needs and explore potential activities to do together. - Formulate a plan for re-entering the workforce, including resume updates and the exploration of alternative employment opportunities if required. - Tackle issues related to task completion by challenging negative beliefs and reinforcing the deserved sense of accomplishment. 3. Alcohol Consumption - Set a goal to reduce and eventually stop alcohol intake, noting its long-term contribution to depression. - Seek out social engagements that do not center around alcohol, such as participating in pool tournaments or gatherings with non-drinking friends. 4. Sleep Disturbances - Establish and adhere to a consistent sleep schedule while avoiding excessive napping. - Keep track of how medications affect sleep quality and discuss any issues with the prescribing physician. 5. Cardiovascular Health - Engage in an upcoming drug trial focused on heart health and adhere to any recommended treatment protocols. - Opt for healthier lifestyle choices, including regular exercise, a balanced diet, and the cessation of smoking and alcohol use. Follow-up: - Arrange a follow-up appointment on the to evaluate progress and discuss the potential for returning to work on the . - In the interim, prioritize self-care, seek mental health support, and implement the strategies outlined for improvement. 10/28/2024 RACHANA (generalized anxiety disorder) (ICD-10 - F41.1) Anxiety and Stress Related to Work Situation Encourage the patient to discuss concerns with a friend who is a mechanical project manager at the company for clarity on job security. Explore alternative job options or companies if stress and anxiety persist due to the current job. Recommend establishing a routine and utilizing a party planner for better daily activity organization and time management. Task Completion Difficulties and Distraction Suggest breaking tasks into smaller, manageable steps to enhance task completion. Identify barriers to task completion and devise strategies to overcome them. Escitalopram Dosage Error Emphasize the importance of adhering to the correct medication dosage and verifying medication labels. Monitor for any side effects or mood changes stemming from the dosage discrepancy. Alcohol Consumption Continue monitoring and reducing alcohol intake. Discuss the positive impacts of decreased alcohol consumption on mood and overall mental health. Sleep Disturbances and Excessive Napping Recommend progressive muscle relaxation techniques for easier sleep initiation. Advise on maintaining a consistent sleep schedule and avoiding daytime naps to enhance sleep quality. Financial Stress Explore options for managing financial stress, including budgeting, debt consolidation, or seeking financial counseling. Family and Relationship Dynamics Promote open communication with the patient's regarding their feelings and concerns. Consider the potential benefits of couples therapy for addressing relationship issues. Follow-up: Arrange a follow-up appointment post the patient's trip to [place] to review the outcomes of discussions with his friend and any job-related decisions. Persist in monitoring the patient's mental health, adherence to medication, and progress on the addressed issues. 10/28/2024 Severe episode of recurrent major depressive disorder, without psychotic features (ICD-10 - F33.2) Anxiety and Stress Related to Work Situation Encourage the patient to discuss concerns with a friend who is a mechanical project manager at the company for clarity on job security. Explore alternative job options or companies if stress and anxiety persist due to the current job. Recommend establishing a routine and utilizing a party planner for better daily activity organization and time management. Task Completion Difficulties and Distraction Suggest breaking tasks into smaller, manageable steps to enhance task completion. Identify barriers to task completion and devise strategies to overcome them. Escitalopram Dosage Error Emphasize the importance of adhering to the correct medication dosage and verifying medication labels. Monitor for any side effects or mood changes stemming from the dosage discrepancy. Alcohol Consumption Continue monitoring and reducing alcohol intake. Discuss the positive impacts of decreased alcohol consumption on mood and overall mental health. Sleep Disturbances and Excessive Napping Recommend progressive muscle relaxation techniques for easier sleep initiation. Advise on maintaining a consistent sleep schedule and avoiding daytime naps to enhance sleep quality. Financial Stress Explore options for managing financial stress, including budgeting, debt consolidation, or seeking financial counseling. Family and Relationship Dynamics Promote open communication with the patient's regarding their feelings and concerns. Consider the potential benefits of couples therapy for addressing relationship issues. Follow-up: Arrange a follow-up appointment post the patient's trip to [place] to review the outcomes of discussions with his friend and any job-related decisions. Persist in monitoring the patient's mental health, adherence to medication, and progress on the addressed issues. 11/05/2024 RACHANA (generalized anxiety disorder) (ICD-10 - F41.1) 1. Major Depressive Disorder - PHQ-9 score: 13 - Self rated Depression: 5-6 out of 10 - Orozco Depression Inventory : 26 - Current medications: escitalopram 20 mg, fluvoxamine, and trazodone - Patient reports feeling happier and noticing a big grin when talking to people - Continue current medications - Refill escitalopram 20 mg for 90 days - Encourage continued therapy with Mony - Monitor progress and reassess at next visit 2. Generalized Anxiety Disorder - Anxiety ratin out of 10 - RACHANA-7: 8 - Current medications: BuSpar and hydroxyzine - Patient reports hydroxyzine is effective when needed - Continue current medications - Refill hydroxyzine for 90 days - Encourage stress-reducing activities (exercise, therapy) 3. Alcohol Use Disorder - Patient reports cutting back from daily to two days a week - Aiming for sobriety by end of week - Considering naltrexone as treatment option - Send prescription for naltrexone for 30 days - Provide printed information about naltrexone - Encourage continued progress towards sobriety - Discuss progress at next visit 4. Marital and Family Issues - Ongoing issues with marriage and communication with - Patient committed to marriage but desires to take responsibility for wellness - Encourage continued therapy with Mony to address issues 5. Occupational Stress - On leave from work until December 10 - Work reported as significant stressor and trigger for mental health issues - Considering early return to test medications under stress - Encourage continued therapy and stress management strategies - Reassess mental health status and ability to return to work at next visit 6. Sleep and Appetite - Patient reports sleeping too much and overeating - Monitor sleep and appetite patterns - Encourage regular exercise and healthy diet - Patient joined [facility], plans to start exercising regularly - Reassess sleep and appetite issues at next visit 11/05/2024 MDD (major depressive disorder), recurrent episode, moderate (ICD-10 - F33.1) 1. Major Depressive Disorder - PHQ-9 score: 13 - Self rated Depression: 5-6 out of 10 - Orozco Depression Inventory : 26 - Current medications: escitalopram 20 mg, fluvoxamine, and trazodone - Patient reports feeling happier and noticing a big grin when talking to people - Continue current medications - Refill escitalopram 20 mg for 90 days - Encourage continued therapy with Mony - Monitor progress and reassess at next visit 2. Generalized Anxiety Disorder - Anxiety ratin out of 10 - RACHANA-7: 8 - Current medications: BuSpar and hydroxyzine - Patient reports hydroxyzine is effective when needed - Continue current medications - Refill hydroxyzine for 90 days - Encourage stress-reducing activities (exercise, therapy) 3. Alcohol Use Disorder - Patient reports cutting back from daily to two days a week - Aiming for sobriety by end of week - Considering naltrexone as treatment option - Send prescription for naltrexone for 30 days - Provide printed information about naltrexone - Encourage continued progress towards sobriety - Discuss progress at next visit 4. Marital and Family Issues - Ongoing issues with marriage and communication with - Patient committed to marriage but desires to take responsibility for wellness - Encourage continued therapy with Mony to address issues 5. Occupational Stress - On leave from work until December 10 - Work reported as significant stressor and trigger for mental health issues - Considering early return to test medications under stress - Encourage continued therapy and stress management strategies - Reassess mental health status and ability to return to work at next visit 6. Sleep and Appetite - Patient reports sleeping too much and overeating - Monitor sleep and appetite patterns - Encourage regular exercise and healthy diet - Patient joined [facility], plans to start exercising regularly - Reassess sleep and appetite issues at next visit 11/19/2024 RACHANA (generalized anxiety disorder) (ICD-10 - F41.1) Assessment and Plan: Anxiety and Stress Related to Personal and Financial Issues Encourage the patient to continue engaging in positive activities such as cooking, going to the gym, and spending time with friends and family. Suggest reaching out to a friend at work for support and to discuss job options. Recommend considering attending SMART Recovery meetings for additional support. Alcohol Use Disorder Discuss the possibility of filling a prescription for medication that reduces alcohol cravings. Advise attending at least one SMART Recovery or AA meeting to explore support options. Monitor alcohol intake with the goal of achieving abstinence or reduced consumption. Relationship Issues with Spouse Encourage discussing with the spouse the possibility of couples therapy or setting next steps for the relationship. Continue focusing on self-improvement and self-care during this challenging time. Utilize [place] [employer] to plan for skills he will need if his still plans to leave after this week. Diabetes Management Maintain a low-carb diet and monitor blood sugar levels regularly. Continue engaging in physical activities such as resistance training, walking, and playing basketball. Employment and Financial Stress Evaluate short-term disability benefits and make decisions regarding current job or potential new positions. Consider less stressful work options if disability benefits do not cover expenses. Network and prepare for interviews in the event of a job change. Coping Strategies for Emotional Distress Practice coping ahead by visualizing situations and planning effective coping strategies. Allow for self-compassion and adiel during difficult moments. Prioritize self-care, including sleep, hydration, and nutrition. Follow-up: Schedule a follow-up appointment for two weeks, with the option to call and schedule an earlier appointment if needed. 11/19/2024 Severe episode of recurrent major depressive disorder, without psychotic features (ICD-10 - F33.2) Assessment and Plan: Anxiety and Stress Related to Personal and Financial Issues Encourage the patient to continue engaging in positive activities such as cooking, going to the gym, and spending time with friends and family. Suggest reaching out to a friend at work for support and to discuss job options. Recommend considering attending SMART Recovery meetings for additional support. Alcohol Use Disorder Discuss the possibility of filling a prescription for medication that reduces alcohol cravings. Advise attending at least one SMART Recovery or AA meeting to explore support options. Monitor alcohol intake with the goal of achieving abstinence or reduced consumption. Relationship Issues with Spouse Encourage discussing with the spouse the possibility of couples therapy or setting next steps for the relationship. Continue focusing on self-improvement and self-care during this challenging time. Utilize [place] [employer] to plan for skills he will need if his still plans to leave after this week. Diabetes Management Maintain a low-carb diet and monitor blood sugar levels regularly. Continue engaging in physical activities such as resistance training, walking, and playing basketball. Employment and Financial Stress Evaluate short-term disability benefits and make decisions regarding current job or potential new positions. Consider less stressful work options if disability benefits do not cover expenses. Network and prepare for interviews in the event of a job change. Coping Strategies for Emotional Distress Practice coping ahead by visualizing situations and planning effective coping strategies. Allow for self-compassion and adiel during difficult moments. Prioritize self-care, including sleep, hydration, and nutrition. Follow-up: Schedule a follow-up appointment for two weeks, with the option to call and schedule an earlier appointment if needed. 12/02/2024 RACHANA (generalized anxiety disorder) (ICD-10 - F41.1) Assessment and Plan: Job-related Stress and Financial Instability The patient is contemplating leaving their current position due to escalating work demands and stress. The patient has submitted an application for a new position at [employer] and is awaiting a decision. Encourage the exploration of alternative employment opportunities to alleviate stress and enhance financial security. Marital Issues and Uncertainty The patient's spouse, Bety, is ambivalent about pursuing a divorce, which is heightening the patient's stress and anxiety levels. The patient is seeking a definitive plan for either reconciliation or proceeding with a divorce. Recommend engaging in couples therapy to tackle relationship challenges and bolster communication. Advise the patient to set a timeline for making decisions and planning subsequent steps with their spouse. Anxiety and Panic Attacks The patient has reported experiencing chest pains during nocturnal panic attacks. Continue to track anxiety symptoms and consider modifications to the treatment plan as necessary. Promote the prioritization of stress-reduction activities, including physical exercise and participation in support group gatherings. Alcohol Use The patient recognizes the detrimental effects of alcohol on their mental health but remains unconcerned about their drinking patterns. Suggest attending a support group meeting to assess its potential benefits, specifically SMART Recovery. Keep an eye on alcohol consumption and discuss the possible advantages and drawbacks of decreasing intake. Spouse's Mental Health The patient has noted that their spouse has ceased medication for depression, potentially exacerbating marital difficulties. Urge the patient to converse with their spouse about the significance of mental health care and to offer information on accessible therapy options within their locale. Observe the impact of the spouse's mental health status on the patient's overall well-being. Coping Strategies and Self-Care Due to heightened stress and anxiety, the patient has been overlooking self-care practices, such as physical activity. Motivate the patient to resume self-care routines and focus on effective coping mechanisms. Propose the establishment of attainable weekly objectives, encompassing job search endeavors and communication with their spouse, while steering clear of overthinking and excessive anxiety. 12/02/2024 Severe episode of recurrent major depressive disorder, without psychotic features (ICD-10 - F33.2) Assessment and Plan: Job-related Stress and Financial Instability The patient is contemplating leaving their current position due to escalating work demands and stress. The patient has submitted an application for a new position at [employer] and is awaiting a decision. Encourage the exploration of alternative employment opportunities to alleviate stress and enhance financial security. Marital Issues and Uncertainty The patient's spouse, Bety, is ambivalent about pursuing a divorce, which is heightening the patient's stress and anxiety levels. The patient is seeking a definitive plan for either reconciliation or proceeding with a divorce. Recommend engaging in couples therapy to tackle relationship challenges and bolster communication. Advise the patient to set a timeline for making decisions and planning subsequent steps with their spouse. Anxiety and Panic Attacks The patient has reported experiencing chest pains during nocturnal panic attacks. Continue to track anxiety symptoms and consider modifications to the treatment plan as necessary. Promote the prioritization of stress-reduction activities, including physical exercise and participation in support group gatherings. Alcohol Use The patient recognizes the detrimental effects of alcohol on their mental health but remains unconcerned about their drinking patterns. Suggest attending a support group meeting to assess its potential benefits, specifically SMART Recovery. Keep an eye on alcohol consumption and discuss the possible advantages and drawbacks of decreasing intake. Spouse's Mental Health The patient has noted that their spouse has ceased medication for depression, potentially exacerbating marital difficulties. Urge the patient to converse with their spouse about the significance of mental health care and to offer information on accessible therapy options within their locale. Observe the impact of the spouse's mental health status on the patient's overall well-being. Coping Strategies and Self-Care Due to heightened stress and anxiety, the patient has been overlooking self-care practices, such as physical activity. Motivate the patient to resume self-care routines and focus on effective coping mechanisms. Propose the establishment of attainable weekly objectives, encompassing job search endeavors and communication with their spouse, while steering clear of overthinking and excessive anxiety. 12/22/2024 RACHANA (generalized anxiety disorder) (ICD-10 - F41.1) Assessment and Plan: Insomnia and Nightmares The patient reports difficulty sleeping and experiencing recurring nightmares, potentially due to medication effects wearing off. Plan: Discuss medication concerns with the psychiatrist during the upcoming appointment. Practice good sleep hygiene, including maintaining a consistent sleep schedule and creating a relaxing bedtime routine. Utilize dream rehearsal to change outcome bk nightmares to positive. Depression and Anxiety The patient expresses feelings of unhappiness, fear of returning to work, and engages in self-criticism. Plan: Continue Cognitive Behavioral Therapy to address negative thought patterns and develop coping strategies. Engage in self-care activities, such as exercise and attending support group meetings. Relationship Issues The patient discusses challenges in their marriage and communication difficulties with their spouse. Plan: Encourage open communication and consider couples therapy for relationship concerns. Explore healthy coping mechanisms for stress and emotions, like journaling or engaging in hobbies. Job Instability and Financial Stress The patient has a history of frequent job changes and is currently experiencing financial stress. Plan: Explore potential job opportunities and develop a plan for long-term career stability. Seek financial counseling or attend financial counselor workshops to address financial concerns. Self-Sabotage and Negative Self-Talk The patient acknowledges a pattern of self-sabotage and negative self-talk contributing to their depression and anxiety. Plan: Work to identify and address self-sabotaging behaviors and develop healthier thought patterns. Practice self-compassion and forgiveness for past mistakes, focusing on personal growth and positive change. 12/22/2024 Severe episode of recurrent major depressive disorder, without psychotic features (ICD-10 - F33.2) Assessment and Plan: Insomnia and Nightmares The patient reports difficulty sleeping and experiencing recurring nightmares, potentially due to medication effects wearing off. Plan: Discuss medication concerns with the psychiatrist during the upcoming appointment. Practice good sleep hygiene, including maintaining a consistent sleep schedule and creating a relaxing bedtime routine. Utilize dream rehearsal to change outcome bk nightmares to positive. Depression and Anxiety The patient expresses feelings of unhappiness, fear of returning to work, and engages in self-criticism. Plan: Continue Cognitive Behavioral Therapy to address negative thought patterns and develop coping strategies. Engage in self-care activities, such as exercise and attending support group meetings. Relationship Issues The patient discusses challenges in their marriage and communication difficulties with their spouse. Plan: Encourage open communication and consider couples therapy for relationship concerns. Explore healthy coping mechanisms for stress and emotions, like journaling or engaging in hobbies. Job Instability and Financial Stress The patient has a history of frequent job changes and is currently experiencing financial stress. Plan: Explore potential job opportunities and develop a plan for long-term career stability. Seek financial counseling or attend financial counselor workshops to address financial concerns. Self-Sabotage and Negative Self-Talk The patient acknowledges a pattern of self-sabotage and negative self-talk contributing to their depression and anxiety. Plan: Work to identify and address self-sabotaging behaviors and develop healthier thought patterns. Practice self-compassion and forgiveness for past mistakes, focusing on personal growth and positive change. 12/22/2024 Alcohol abuse (ICD-10 - F10.10) Assessment and Plan: Insomnia and Nightmares The patient reports difficulty sleeping and experiencing recurring nightmares, potentially due to medication effects wearing off. Plan: Discuss medication concerns with the psychiatrist during the upcoming appointment. Practice good sleep hygiene, including maintaining a consistent sleep schedule and creating a relaxing bedtime routine. Utilize dream rehearsal to change outcome bk nightmares to positive. Depression and Anxiety The patient expresses feelings of unhappiness, fear of returning to work, and engages in self-criticism. Plan: Continue Cognitive Behavioral Therapy to address negative thought patterns and develop coping strategies. Engage in self-care activities, such as exercise and attending support group meetings. Relationship Issues The patient discusses challenges in their marriage and communication difficulties with their spouse. Plan: Encourage open communication and consider couples therapy for relationship concerns. Explore healthy coping mechanisms for stress and emotions, like journaling or engaging in hobbies. Job Instability and Financial Stress The patient has a history of frequent job changes and is currently experiencing financial stress. Plan: Explore potential job opportunities and develop a plan for long-term career stability. Seek financial counseling or attend financial counselor workshops to address financial concerns. Self-Sabotage and Negative Self-Talk The patient acknowledges a pattern of self-sabotage and negative self-talk contributing to their depression and anxiety. Plan: Work to identify and address self-sabotaging behaviors and develop healthier thought patterns. Practice self-compassion and forgiveness for past mistakes, focusing on personal growth and positive change. 12/02/2024 Alcohol abuse (ICD-10 - F10.10) Assessment and Plan: Job-related Stress and Financial Instability The patient is contemplating leaving their current position due to escalating work demands and stress. The patient has submitted an application for a new position at [employer] and is awaiting a decision. Encourage the exploration of alternative employment opportunities to alleviate stress and enhance financial security. Marital Issues and Uncertainty The patient's spouse, Bety, is ambivalent about pursuing a divorce, which is heightening the patient's stress and anxiety levels. The patient is seeking a definitive plan for either reconciliation or proceeding with a divorce. Recommend engaging in couples therapy to tackle relationship challenges and bolster communication. Advise the patient to set a timeline for making decisions and planning subsequent steps with their spouse. Anxiety and Panic Attacks The patient has reported experiencing chest pains during nocturnal panic attacks. Continue to track anxiety symptoms and consider modifications to the treatment plan as necessary. Promote the prioritization of stress-reduction activities, including physical exercise and participation in support group gatherings. Alcohol Use The patient recognizes the detrimental effects of alcohol on their mental health but remains unconcerned about their drinking patterns. Suggest attending a support group meeting to assess its potential benefits, specifically SMART Recovery. Keep an eye on alcohol consumption and discuss the possible advantages and drawbacks of decreasing intake. Spouse's Mental Health The patient has noted that their spouse has ceased medication for depression, potentially exacerbating marital difficulties. Urge the patient to converse with their spouse about the significance of mental health care and to offer information on accessible therapy options within their locale. Observe the impact of the spouse's mental health status on the patient's overall well-being. Coping Strategies and Self-Care Due to heightened stress and anxiety, the patient has been overlooking self-care practices, such as physical activity. Motivate the patient to resume self-care routines and focus on effective coping mechanisms. Propose the establishment of attainable weekly objectives, encompassing job search endeavors and communication with their spouse, while steering clear of overthinking and excessive anxiety. 11/19/2024 Alcohol abuse (ICD-10 - F10.10) Assessment and Plan: Anxiety and Stress Related to Personal and Financial Issues Encourage the patient to continue engaging in positive activities such as cooking, going to the gym, and spending time with friends and family. Suggest reaching out to a friend at work for support and to discuss job options. Recommend considering attending SMART Recovery meetings for additional support. Alcohol Use Disorder Discuss the possibility of filling a prescription for medication that reduces alcohol cravings. Advise attending at least one SMART Recovery or AA meeting to explore support options. Monitor alcohol intake with the goal of achieving abstinence or reduced consumption. Relationship Issues with Spouse Encourage discussing with the spouse the possibility of couples therapy or setting next steps for the relationship. Continue focusing on self-improvement and self-care during this challenging time. Utilize [place] [employer] to plan for skills he will need if his still plans to leave after this week. Diabetes Management Maintain a low-carb diet and monitor blood sugar levels regularly. Continue engaging in physical activities such as resistance training, walking, and playing basketball. Employment and Financial Stress Evaluate short-term disability benefits and make decisions regarding current job or potential new positions. Consider less stressful work options if disability benefits do not cover expenses. Network and prepare for interviews in the event of a job change. Coping Strategies for Emotional Distress Practice coping ahead by visualizing situations and planning effective coping strategies. Allow for self-compassion and adiel during difficult moments. Prioritize self-care, including sleep, hydration, and nutrition. Follow-up: Schedule a follow-up appointment for two weeks, with the option to call and schedule an earlier appointment if needed. 10/02/2024 Primary insomnia (ICD-10 - F51.01) 1. Major Depressive Disorder - Patient reports depression at 8-9 out of 10 - Plan: Increase escitalopram to 20 mg daily. Encourage him to engage in therapy. Recommend lifestyle changes, including exercise and adopting a Mediterranean diet. 2. Generalized Anxiety Disorder - Patient reports high anxiety levels and frequent panic attacks - Plan: Increase BuSpar to three times a day. Prescribe hydroxyzine as needed for anxiety, with caution for potential side effects. Encourage him to engage in therapy. Recommend lifestyle changes, including exercise and adopting a Mediterranean diet. 3. Panic Disorder - Patient reports panic attacks lasting up to 4 hours, occurring in the middle of the night and every morning - Plan: Continue BuSpar three times a day. Prescribe hydroxyzine as needed for anxiety, with caution for potential side effects. Encourage him to engage in therapy. Educate him on recognizing panic attacks and utilizing coping strategies. 4. Insomnia - Patient reports getting a solid 8 hours of sleep - Plan: Continue trazodone 50 mg at night. Encourage him to maintain a consistent sleep schedule and practice good sleep hygiene. 5. Coronary Artery Disease - Patient reports history of CABG in 2020 and multiple stent placements - Plan: Continue current cardiac medications as prescribed. Encourage him to engage in regular exercise and adopt a Mediterranean diet. Recommend regular follow-up with neon glass bender. 6. Type 2 Diabetes Mellitus - Patient reports irregular use of Ozempic and Jardiance due to supply issues - Plan: Continue metformin, Ozempic, and Jardiance as prescribed. Encourage him to discuss medication adjustments with his primary care provider. Recommend adopting a Mediterranean diet and engaging in regular exercise. 7. Hypertension - Plan: Continue metoprolol and enalapril as prescribed. Encourage him to monitor blood pressure regularly at home. Recommend lifestyle changes, including exercise and adopting a Mediterranean diet. 8. Dyslipidemia - Plan: Continue rosuvastatin, ezetimibe, and fenofibrate as prescribed. Encourage him to adopt a Mediterranean diet and engage in regular exercise. 9. Gastroesophageal Reflux Disease - Plan: Continue pantoprazole as prescribed. Educate him on recognizing symptoms of acid reflux and differentiating from cardiac chest pain. 10. Alcohol Use Disorder - Patient reports drinking too much - Plan: Encourage him to seek therapy and support for alcohol cessation. Educate him on the negative effects of alcohol on mental health and overall well-being. 11. Coping Skills and Stress Management - Patient reports using food as a coping mechanism and binge eating - Plan: Encourage him to engage in therapy to develop healthy coping strategies. Recommend regular exercise and adopting a Mediterranean diet as part of stress management. Follow-up: - Schedule a follow-up appointment in 4-6 weeks to assess the patient's progress and medication adjustments - Encourage him to contact the clinic or healthcare professional if symptoms worsen or new concerns arise - Provide information about the [facility] crisis hotline for immediate mental health support 10/20/2024 Alcohol abuse (ICD-10 - F10.10) 1. Depression - Continue with the current medication regimen and consult the prescribing physician regarding the dosing schedule of the new medication. [place] informed client medication is as needed and should take effect in 20 minutes. - Aim to monitor and reduce excessive napping to improve sleep patterns. - Consider the daily use of a light box for 30 minutes to enhance mood and energy levels. - Encourage engagement in physical activities, such as gym membership or participation in free yoga classes. - Explore resources at the local library for audiobooks and materials that support mental well-being. 2. Anxiety - Foster open communication with the spouse about individual mental health needs and explore potential activities to do together. - Formulate a plan for re-entering the workforce, including resume updates and the exploration of alternative employment opportunities if required. - Tackle issues related to task completion by challenging negative beliefs and reinforcing the deserved sense of accomplishment. 3. Alcohol Consumption - Set a goal to reduce and eventually stop alcohol intake, noting its long-term contribution to depression. - Seek out social engagements that do not center around alcohol, such as participating in pool tournaments or gatherings with non-drinking friends. 4. Sleep Disturbances - Establish and adhere to a consistent sleep schedule while avoiding excessive napping. - Keep track of how medications affect sleep quality and discuss any issues with the prescribing physician. 5. Cardiovascular Health - Engage in an upcoming drug trial focused on heart health and adhere to any recommended treatment protocols. - Opt for healthier lifestyle choices, including regular exercise, a balanced diet, and the cessation of smoking and alcohol use. Follow-up: - Arrange a follow-up appointment on the to evaluate progress and discuss the potential for returning to work on the . - In the interim, prioritize self-care, seek mental health support, and implement the strategies outlined for improvement. 10/28/2024 Alcohol abuse (ICD-10 - F10.10) Anxiety and Stress Related to Work Situation Encourage the patient to discuss concerns with a friend who is a mechanical project manager at the company for clarity on job security. Explore alternative job options or companies if stress and anxiety persist due to the current job. Recommend establishing a routine and utilizing a party planner for better daily activity organization and time management. Task Completion Difficulties and Distraction Suggest breaking tasks into smaller, manageable steps to enhance task completion. Identify barriers to task completion and devise strategies to overcome them. Escitalopram Dosage Error Emphasize the importance of adhering to the correct medication dosage and verifying medication labels. Monitor for any side effects or mood changes stemming from the dosage discrepancy. Alcohol Consumption Continue monitoring and reducing alcohol intake. Discuss the positive impacts of decreased alcohol consumption on mood and overall mental health. Sleep Disturbances and Excessive Napping Recommend progressive muscle relaxation techniques for easier sleep initiation. Advise on maintaining a consistent sleep schedule and avoiding daytime naps to enhance sleep quality. Financial Stress Explore options for managing financial stress, including budgeting, debt consolidation, or seeking financial counseling. Family and Relationship Dynamics Promote open communication with the patient's regarding their feelings and concerns. Consider the potential benefits of couples therapy for addressing relationship issues. Follow-up: Arrange a follow-up appointment post the patient's trip to [place] to review the outcomes of discussions with his friend and any job-related decisions. Persist in monitoring the patient's mental health, adherence to medication, and progress on the addressed issues. 11/05/2024 Primary insomnia (ICD-10 - F51.01) 1. Major Depressive Disorder - PHQ-9 score: 13 - Self rated Depression: 5-6 out of 10 - Orozco Depression Inventory : 26 - Current medications: escitalopram 20 mg, fluvoxamine, and trazodone - Patient reports feeling happier and noticing a big grin when talking to people - Continue current medications - Refill escitalopram 20 mg for 90 days - Encourage continued therapy with Mony - Monitor progress and reassess at next visit 2. Generalized Anxiety Disorder - Anxiety ratin out of 10 - RACHANA-7: 8 - Current medications: BuSpar and hydroxyzine - Patient reports hydroxyzine is effective when needed - Continue current medications - Refill hydroxyzine for 90 days - Encourage stress-reducing activities (exercise, therapy) 3. Alcohol Use Disorder - Patient reports cutting back from daily to two days a week - Aiming for sobriety by end of week - Considering naltrexone as treatment option - Send prescription for naltrexone for 30 days - Provide printed information about naltrexone - Encourage continued progress towards sobriety - Discuss progress at next visit 4. Marital and Family Issues - Ongoing issues with marriage and communication with - Patient committed to marriage but desires to take responsibility for wellness - Encourage continued therapy with Mony to address issues 5. Occupational Stress - On leave from work until December 10 - Work reported as significant stressor and trigger for mental health issues - Considering early return to test medications under stress - Encourage continued therapy and stress management strategies - Reassess mental health status and ability to return to work at next visit 6. Sleep and Appetite - Patient reports sleeping too much and overeating - Monitor sleep and appetite patterns - Encourage regular exercise and healthy diet - Patient joined [facility], plans to start exercising regularly - Reassess sleep and appetite issues at next visit 10/06/2024 Alcohol abuse (ICD-10 - F10.10) 1. Major Depressive Disorder - Continue with the current medication regimen and monitor its effectiveness. - Schedule a follow-up appointment in early October to evaluate the response to medication. - Encourage the establishment of a daily routine to enhance mood and productivity. - Recommend creating distinct work and sleep environments upon returning to work. - Consider a referral to a support group for additional social support. 2. Marital and Family Stressors - Promote open communication with the patient's regarding each other's mental health struggles and needs. - Suggest that the patient's pursue her own mental health evaluation and treatment, considering her family history and present symptoms. - Recommend couples therapy to work through relationship issues and enhance communication. 3. Work-related Stress - Assist the patient in securing additional medical leave through FMLA documentation. - Encourage discussions with HR about commission concerns and to clarify financial expectations. - Explore potential long-term career paths and strategies for achieving work-life balance. 4. Alcohol Use - Keep track of alcohol consumption and support efforts to decrease intake. - If alcohol use escalates, consider recommending a support group or consulting a substance abuse counselor. 5. Nutrition and Lifestyle - Motivate the patient to adopt healthier eating patterns and partake in regular physical activity. - Discuss stress management techniques, including mindfulness and gratitude exercises. Follow-up: - Arrange therapy sessions bi-weekly to assess progress and tackle persistent issues. - Modify the treatment plan as necessary, based on the patient's feedback and changing needs. 10/03/2024 Marijuana use (ICD-10 - F12.90) Marital Status: Living Arrangement: lives with Judith and two dogs. Children: 2 adult children Support System: a couple of good friends. Noted that has brought up divorce as a possibility. 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 History: Denied Legal History: Denied Family History of MH/RADHA: None reported Physical Medical Conditions: triple bypass surgery and multiple stints. Diabetes. Concerns with blood pressure. Sleep apnea Spiritual Beliefs: None that I would put a label on Suicidal Ideation/Self Harm: Denied Homicidal Ideation: Denied Access to means (firearms etc): Denied Chief Complaint: my attitude about everything has gone completely downhill. I really don't care if I lose my job or end up homeless. I am out of sorts. Anxiety: Notes feelings of something bad will happen if he even goes near his work computer. History of panic attacks 1-2x a year. Reported that sometimes they will now last overnight, heart racing, thoughts of , difficulty breathing, headaches, feels his face gets hot. Avoiding anxious thoughts. Depression: Apathetic mood, indifferent. Isolation for the past few years at work due to working from home. Believes that he is self-sabotaging. Anger: Noted sending impulsive emails that called another co-worker an idiot. Denied yelling or physical altercations. Psychosis: Denied Sleep: Sleeps 8 hours a night. Has sleep apnea and noted that bipap machine is dysregulated and he will need to go in for another sleep study. Appetite: Reported eating overeating. States he will eat large meals and constantly eat in between. Suspects eating [id number] calories a day and not gaining weight. Substance Use (type, last use, amount, frequency, withdrawal symptoms): alcohol, 5 nights a week 4-5 drinks. Marijuana on occasion 1x a week, notes he does not feel the need to use often. Gambling/Other Addictive Behaviors: Denied concerns with gambling. Eating is a concern. ADLs (Hygiene, Chores, Cooking, Shopping): Reports difficulty in completing tasks. Reports the room that he is sleeping in is a mess . Noted not showering as often as he used to. Interests/Skills/H obbies: Math is a strength. Playing pool including in tournaments. Goal(s) for Therapy: I have no idea. I've just thought about coming to therapy. I know there is something wrong that I am not doing things correctly. I need to work on me. 1. Major Depressive Disorder - Continue with the current medication regimen as directed by the general practitioner. - Schedule a follow-up appointment before to explore job-related plans and strategies for moving forward. - Encourage establishing a daily routine and setting small, achievable goals. 2. Anxiety and Panic Attacks - Maintain the prescribed dosage of buspirone, taking it three times daily. - Consider the addition of relaxation techniques, such as deep breathing exercises and mindfulness practices, to manage symptoms. - Monitor the frequency and severity of panic attacks during subsequent appointments. 3. Alcohol Use Disorder - Advise a reduction in alcohol consumption, moving towards abstinence. - Discuss the potential benefits of attending support groups or seeking additional resources for alcohol use management. - Track progress in reducing alcohol intake in future follow-ups. 4. Sleep Apnea and BiPAP Issues - Recommend scheduling a sleep study to reassess BiPAP settings for optimal treatment. - Encourage adherence to a consistent sleep schedule and the practice of good sleep hygiene. 5. Unhealthy Eating Habits and Weight Gain - Suggest exploring the Mediterranean diet cookbook for healthier meal options. - Advise monitoring portion sizes and being mindful of caloric intake. 6. Sedentary Lifestyle and Lack of Exercise - Recommend finding a gym to establish a regular exercise routine. - Encourage participation in enjoyable physical activities, such as playing pool or gardening. 7. Marital Issues - Promote open communication with the spouse and the consideration of couples therapy to address relationship concerns. - Monitor the impact of marital issues on mental health in subsequent appointments. 8. Job-related Stress and Burnout - Discuss strategies for improving work-life balance and managing job-related stress at the follow-up appointment before the . - Encourage contemplation of alternative job options or a temporary leave of absence if deemed necessary. 9. Social Isolation - Encourage maintaining connections with friends and seeking new social opportunities to build a support network. - Monitor progress in enhancing social connections during future follow-ups. 01/02/2025 RACHANA (generalized anxiety disorder) (ICD-10 - F41.1) 1. Suicidal Ideation - Patient reports passive suicidal ideation without intent or plan, expressing feeling that he didn't really believe that [he] deserved to live any longer - Denies active suicidal thoughts or intentions to harm himself, stating I'm nowhere near, would never do something to hurt myself - Recent interaction with [employer] resulted in statement about putting a gun in mouth, leading to police wellness check - Incident appears to be impulsive verbal outburst rather than genuine threat, as patient states no weapons ownership -Address self sabotaging behaviors 2. Anger Management Issues - Demonstrates ongoing difficulties with anger management, evidenced by recent outbursts - Describes an explosion during interaction with [employer], comparing to September incident with mechanical project manager - Expresses concern about ability to control anger, stating I can't act like this - Worries about potentially blowing up at work -Engage in stress management skills including regular exercise 3. Alcohol Use - Reports recent alcohol use as coping mechanism - Attempted to stop drinking but relapsed after 24-48 hours following stressful event - Acknowledges problematic drinking, stating I didn't fall off the wagon, I jumped headfirst off the wagon -Encourage attendance to [facility] or AA meetings 4. 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 Anxiety and Panic Symptoms - Reports experiencing ongoing panic symptoms for past three days, describing it as a little panic thing - Taking prescribed medications about an hour before session to manage symptoms - Anxiety appears exacerbated by rumination on current life stressors -Engage in anxiety management skills including TIP (Temperature, Intense exercise, Paced breathing, Paired muscle relaxation) 6. Relationship Stress - Reports has been in bed for two days following police wellness check incident - Describes as embarrassed and not engaging in household activities - Feels conflicted about marital vows and ability to support through her mental health challenges -Kamaljit states he would like to apologize to his 01/23/2025 Generalized anxiety disorder (ICD-10 - F41.1) 12/24/2024 Primary insomnia (ICD-10 - F51.01) 01/08/2025 Generalized anxiety disorder (ICD-10 - F41.1) 01/02/2025 Encounter for screening for depression (ICD-10 - Z13.31) 1. Suicidal Ideation - Patient reports passive suicidal ideation without intent or plan, expressing feeling that he didn't really believe that [he] deserved to live any longer - Denies active suicidal thoughts or intentions to harm himself, stating I'm nowhere near, would never do something to hurt myself - Recent interaction with [employer] resulted in statement about putting a gun in mouth, leading to police wellness check - Incident appears to be impulsive verbal outburst rather than genuine threat, as patient states no weapons ownership -Address self sabotaging behaviors 2. Anger Management Issues - Demonstrates ongoing difficulties with anger management, evidenced by recent outbursts - Describes an explosion during interaction with [employer], comparing to September incident with mechanical project manager - Expresses concern about ability to control anger, stating I can't act like this - Worries about potentially blowing up at work -Engage in stress management skills including regular exercise 3. Alcohol Use - Reports recent alcohol use as coping mechanism - Attempted to stop drinking but relapsed after 24-48 hours following stressful event - Acknowledges problematic drinking, stating I didn't fall off the wagon, I jumped headfirst off the wagon -Encourage attendance to [facility] or AA meetings 4. 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 Anxiety and Panic Symptoms - Reports experiencing ongoing panic symptoms for past three days, describing it as a little panic thing - Taking prescribed medications about an hour before session to manage symptoms - Anxiety appears exacerbated by rumination on current life stressors -Engage in anxiety management skills including TIP (Temperature, Intense exercise, Paced breathing, Paired muscle relaxation) 6. Relationship Stress - Reports has been in bed for two days following police wellness check incident - Describes as embarrassed and not engaging in household activities - Feels conflicted about marital vows and ability to support through her mental health challenges -Kamaljit states he would like to apologize to his 10/02/2024 Marijuana use (ICD-10 - F12.90) 1. Major Depressive Disorder - Patient reports depression at 8-9 out of 10 - Plan: Increase escitalopram to 20 mg daily. Encourage him to engage in therapy. Recommend lifestyle changes, including exercise and adopting a Mediterranean diet. 2. Generalized Anxiety Disorder - Patient reports high anxiety levels and frequent panic attacks - Plan: Increase BuSpar to three times a day. Prescribe hydroxyzine as needed for anxiety, with caution for potential side effects. Encourage him to engage in therapy. Recommend lifestyle changes, including exercise and adopting a Mediterranean diet. 3. Panic Disorder - Patient reports panic attacks lasting up to 4 hours, occurring in the middle of the night and every morning - Plan: Continue BuSpar three times a day. Prescribe hydroxyzine as needed for anxiety, with caution for potential side effects. Encourage him to engage in therapy. Educate him on recognizing panic attacks and utilizing coping strategies. 4. Insomnia - Patient reports getting a solid 8 hours of sleep - Plan: Continue trazodone 50 mg at night. Encourage him to maintain a consistent sleep schedule and practice good sleep hygiene. 5. Coronary Artery Disease - Patient reports history of CABG in 2020 and multiple stent placements - Plan: Continue current cardiac medications as prescribed. Encourage him to engage in regular exercise and adopt a Mediterranean diet. Recommend regular follow-up with neon glass bender. 6. Type 2 Diabetes Mellitus - Patient reports irregular use of Ozempic and Jardiance due to supply issues - Plan: Continue metformin, Ozempic, and Jardiance as prescribed. Encourage him to discuss medication adjustments with his primary care provider. Recommend adopting a Mediterranean diet and engaging in regular exercise. 7. Hypertension - Plan: Continue metoprolol and enalapril as prescribed. Encourage him to monitor blood pressure regularly at home. Recommend lifestyle changes, including exercise and adopting a Mediterranean diet. 8. Dyslipidemia - Plan: Continue rosuvastatin, ezetimibe, and fenofibrate as prescribed. Encourage him to adopt a Mediterranean diet and engage in regular exercise. 9. Gastroesophageal Reflux Disease - Plan: Continue pantoprazole as prescribed. Educate him on recognizing symptoms of acid reflux and differentiating from cardiac chest pain. 10. Alcohol Use Disorder - Patient reports drinking too much - Plan: Encourage him to seek therapy and support for alcohol cessation. Educate him on the negative effects of alcohol on mental health and overall well-being. 11. Coping Skills and Stress Management - Patient reports using food as a coping mechanism and binge eating - Plan: Encourage him to engage in therapy to develop healthy coping strategies. Recommend regular exercise and adopting a Mediterranean diet as part of stress management. Follow-up: - Schedule a follow-up appointment in 4-6 weeks to assess the patient's progress and medication adjustments - Encourage him to contact the clinic or healthcare professional if symptoms worsen or new concerns arise - Provide information about the [facility] crisis hotline for immediate mental health support 10/03/2024 Primary insomnia (ICD-10 - F51.01) Marital Status: Living Arrangement: lives with Judith and two dogs. Children: 2 adult children Support System: a couple of good friends. Noted that has brought up divorce as a possibility. 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 History: Denied Legal History: Denied Family History of MH/RADHA: None reported Physical Medical Conditions: triple bypass surgery and multiple stints. Diabetes. Concerns with blood pressure. Sleep apnea Spiritual Beliefs: None that I would put a label on Suicidal Ideation/Self Harm: Denied Homicidal Ideation: Denied Access to means (firearms etc): Denied Chief Complaint: my attitude about everything has gone completely downhill. I really don't care if I lose my job or end up homeless. I am out of sorts. Anxiety: Notes feelings of something bad will happen if he even goes near his work computer. History of panic attacks 1-2x a year. Reported that sometimes they will now last overnight, heart racing, thoughts of , difficulty breathing, headaches, feels his face gets hot. Avoiding anxious thoughts. Depression: Apathetic mood, indifferent. Isolation for the past few years at work due to working from home. Believes that he is self-sabotaging. Anger: Noted sending impulsive emails that called another co-worker an idiot. Denied yelling or physical altercations. Psychosis: Denied Sleep: Sleeps 8 hours a night. Has sleep apnea and noted that bipap machine is dysregulated and he will need to go in for another sleep study. Appetite: Reported eating overeating. States he will eat large meals and constantly eat in between. Suspects eating [id number] calories a day and not gaining weight. Substance Use (type, last use, amount, frequency, withdrawal symptoms): alcohol, 5 nights a week 4-5 drinks. Marijuana on occasion 1x a week, notes he does not feel the need to use often. Gambling/Other Addictive Behaviors: Denied concerns with gambling. Eating is a concern. ADLs (Hygiene, Chores, Cooking, Shopping): Reports difficulty in completing tasks. Reports the room that he is sleeping in is a mess . Noted not showering as often as he used to. Interests/Skills/H obbies: Math is a strength. Playing pool including in tournaments. Goal(s) for Therapy: I have no idea. I've just thought about coming to therapy. I know there is something wrong that I am not doing things correctly. I need to work on me. 1. Major Depressive Disorder - Continue with the current medication regimen as directed by the general practitioner. - Schedule a follow-up appointment before the to explore job-related plans and strategies for moving forward. - Encourage establishing a daily routine and setting small, achievable goals. 2. Anxiety and Panic Attacks - Maintain the prescribed dosage of buspirone, taking it three times daily. - Consider the addition of relaxation techniques, such as deep breathing exercises and mindfulness practices, to manage symptoms. - Monitor the frequency and severity of panic attacks during subsequent appointments. 3. Alcohol Use Disorder - Advise a reduction in alcohol consumption, moving towards abstinence. - Discuss the potential benefits of attending support groups or seeking additional resources for alcohol use management. - Track progress in reducing alcohol intake in future follow-ups. 4. Sleep Apnea and BiPAP Issues - Recommend scheduling a sleep study to reassess BiPAP settings for optimal treatment. - Encourage adherence to a consistent sleep schedule and the practice of good sleep hygiene. 5. Unhealthy Eating Habits and Weight Gain - Suggest exploring the Mediterranean diet cookbook for healthier meal options. - Advise monitoring portion sizes and being mindful of caloric intake. 6. Sedentary Lifestyle and Lack of Exercise - Recommend finding a gym to establish a regular exercise routine. - Encourage participation in enjoyable physical activities, such as playing pool or gardening. 7. Marital Issues - Promote open communication with the spouse and the consideration of couples therapy to address relationship concerns. - Monitor the impact of marital issues on mental health in subsequent appointments. 8. Job-related Stress and Burnout - Discuss strategies for improving work-life balance and managing job-related stress at the follow-up appointment before the . - Encourage contemplation of alternative job options or a temporary leave of absence if deemed necessary. 9. Social Isolation - Encourage maintaining connections with friends and seeking new social opportunities to build a support network. - Monitor progress in enhancing social connections during future follow-ups. 10/20/2024 Marijuana use (ICD-10 - F12.90) 1. Depression - Continue with the current medication regimen and consult the prescribing physician regarding the dosing schedule of the new medication. [place] informed client medication is as needed and should take effect in 20 minutes. - Aim to monitor and reduce excessive napping to improve sleep patterns. - Consider the daily use of a light box for 30 minutes to enhance mood and energy levels. - Encourage engagement in physical activities, such as gym membership or participation in free yoga classes. - Explore resources at the local library for audiobooks and materials that support mental well-being. 2. Anxiety - Foster open communication with the spouse about individual mental health needs and explore potential activities to do together. - Formulate a plan for re-entering the workforce, including resume updates and the exploration of alternative employment opportunities if required. - Tackle issues related to task completion by challenging negative beliefs and reinforcing the deserved sense of accomplishment. 3. Alcohol Consumption - Set a goal to reduce and eventually stop alcohol intake, noting its long-term contribution to depression. - Seek out social engagements that do not center around alcohol, such as participating in pool tournaments or gatherings with non-drinking friends. 4. Sleep Disturbances - Establish and adhere to a consistent sleep schedule while avoiding excessive napping. - Keep track of how medications affect sleep quality and discuss any issues with the prescribing physician. 5. Cardiovascular Health - Engage in an upcoming drug trial focused on heart health and adhere to any recommended treatment protocols. - Opt for healthier lifestyle choices, including regular exercise, a balanced diet, and the cessation of smoking and alcohol use. Follow-up: - Arrange a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 Information Insurance Providers Payer Name Payer Address Payer Phone Subscriber Number Group Number Insured Name Patient Relationship to Insured Coverage Start Date Coverage End Date [facility] [address] [place] [phone] [id number] KAMALJIT PARKER Self - patient is the insured Medical (General) History Medical History History ICD Code Past Psychiatric History: Anxiety Disord er,Panic Disorder ischemic heart disease coronary artery disease hypertension acid reflux diabetes insipidus Surgical History Surgery Date(Month/Year) coronary artery bypass graft 2020 coronary angioplasty and stenting Hospitalization History Reason Date(Month/Year) for cardiac
--- OUTSIDE RECORDS SUMMARY | 2025-02-19 08:36 | XMS_ITS | Data Portability ---
Author Organization NEEL[facility] - SIBlas Morrissey Address [address] [facility] [place] [address] Care Team Providers Care Delicatessen Department Manager Name Role Phone WADE RAHMAN Primary Care Provider Assessment Encounter Date Assessment Date Assessment LastModified by Organization Details LastModified Time 10/01/2024 10/01/2024 we are trying to get his records he has been to the eye doctor he is not clear if he has had a foot examination for his diabetes I have spoken with psychiatric provider and he will be referred there for meeting tomorrow. Other recommendations per when I see the records from [place]. He will see me back in 1 month no changes in therapy states that he had flu and COVID shots just a couple of weeks ago he is not having any decompensated cardiovascular symptoms and no decompensated diabetic symptoms at this time. He has an order for blood work he will go get that at [facility] and have them send me a copy Not available 10/04/2024 16:28:15 Plan of Treatment Reminders Order Date Submit Date Provider Last Modified By Organization Details Last Modified Time Details Appointments None recorded. Lab None recorded. Referral special agent referral 2023 024 [email or web address] Leno Baptiste [facility], [address], [place], [address], 08:38:46 Procedures None recorded. Surgeries None recorded. Imaging None recorded. Medication Orders None recorded. Patient TargetsNo targets recorded. 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, [place], [address], [place] [facility] 16:25:09 History of coronary artery bypass grafting 399730110 Active 2023 Wade Rahman MD Attn: Calos benito,[address] [facility], [place], [address], [place] [facility] 16:25:12 Hyperlipidemia 99152908 Active 2023 Wade Rahman MD Attn: Calos benito,[address] [facility], [place], [address], [place] [facility] 16:25:13 Depressive disorder 62402308 Active 2023 Wade Rahman MD Attn: Calos benito,[address] [facility], [place], [address], [place] [facility] 16:25:15 Obstructive sleep apnea syndrome 44103575 Active 2023 Wade Rahman MD Attn: Calos benito,[address] [facility], [place], [address], [place] [facility] 16:25:18 Type 2 diabetes mellitus 20927583 Active 2023 Wade Rahman MD Attn: Calos benito,[address] [facility], [place], [address], [place] [facility] 16:25:22 Obesity 118351708 Active 2023 Wade Rahman MD Attn: Calos benito,[address] [facility], [place], [address], [place] [facility] 12/14/202 4 16:25:25 Problem Notes None recorded. Procedures Surgical History Date Name Laterality Status Provider Name and Address Organization Details Recorded Time 3 placement of stent in cardiac conduit completed Lea Ya MA [facility] 10/01/2024 14:10:05 1 cabbage specific IgE antibody measurement completed Lea Ya MA [facility] 10/01/2024 14:09:47 Imaging Results None recorded. Procedure Notes None recorded. Medical Equipment None Reported. Allergies No known drug allergies Vitals Date Recorded Body height Body mass index (BMI) Body weight Heart rate Oxygen saturation Oxygen saturation in Arterial blood by Pulse oximetry Systolic blood pressure Diastolic blood pressure Provider Name and Address Organization Details Last Updated DateTime 4 170.18 cm 32 kg/m2 14795.9 2 g 76 /min 96 % 96 % 120 mm[Hg] 66 mm[Hg] Lea Ya MA [facility] 4 14:07:54 Social History Question Answer Notes LastModified by [employer] ion Details LastModified Time Tobacco Smoking Status Former Smoker [facility] 10/01/2024 14:09:13 Do You Have An Advance Directive? No Information not available 10/01/2024 What Is Your Level Of Alcohol Consumption? Occasional Information not available 10/01/2024 Are You Blind Or Do You Have Difficulty Seeing? No Information not available 10/01/2024 What Is Your Level Of Caffeine Consumption? Occasional Information not available 10/01/2024 In The 14 Days Before Symptom Onset, Have You Had Close Contact With A Laboratory-confir med COVID-19 While That Case Was Ill? No Information not available 10/01/2024 In The 14 Days Before Symptom Onset, Have You Had Close Contact With A Person Who Is Under Investigation For COVID-19 While That Person Was Ill? No Information not available 10/01/2024 Have You Been To An Area Known To Be High Risk For COVID-19? No Information not available 10/01/2024 Are You Deaf Or Do You Have Serious Difficulty Hearing? No Information not available 10/01/2024 What Type Of Diet Are You Following? REGULAR Information not available 10/01/2024 Are There Any Guns Present In Your Home? No Information not available 10/01/2024 What Was The Date Of Your Most Recent Tobacco Screening? 10/01/2024 Information not available 10/01/2024 Do You Use Your Seat Belt Or Car Seat Routinely? Yes Information not available 10/01/2024 Do You Have Smoke And Carbon Monoxide Detectors In Your Home? Yes Information not available 10/01/2024 How Much Tobacco Do You Smoke? No Information not available 10/01/2024 Do You Use Any Illicit Or Recreational Drugs? No Information not available 10/01/2024 Do You Use Sunscreen Routinely? No Information not available 10/01/2024 Has Tobacco Cessation Counseling Been Provided? No Former Smoker Information not available 10/01/2024 Do You Or Have You Ever Used Any Other Forms Of Tobacco Or Nicotine? No Information not available 10/01/2024 Sex: Male Functional Status Question Answer Note LastModified by Organization D etails LastModified Time Are you able to care for yourself? Yes Information n ot available 10/01/2024 Mental Status None recorded. Family History Nothing Reported. Medical History No medical history recorded. Past Encounters Encounter ID Performer Location Encounter Start Date Encounter Closed Date Diagnosis/Indication Diagnosis SNOMED-CT Code Diagnosis ICD10 Code Diagnosis Note [id number] Wade Rahman MD [facility] (Adult Med) [address] [place] [phone] 10/01/2024 13:49:44 10/01/2024 15:19:08 Body mass index 30+ - obesity 869007668 Z68.32 Obesity 895944755 E66.9 Type 2 jennifer betes mellitus 83629239 E11.9 Essential hypertension 72574124 I10 Coronary atherosclerosis 003520102 I25.10 History of coronary artery bypass grafting 916233709 Z95.1 Hyperlipidemia 30049524 E78.5 Depressive disorder 3548 9007 F32.A Obstructiv e sleep apnea syndrome 01626842 G47.33 Health Concerns Section Related Observation LastModified by Organization Detai ls LastModified Time None Recorded Concern Status LastModified by Organization Details LastModified Time None Recorded Advance Directives Directive N: Payers Encounter Date Sequence Insurance Name Policy Number Policy Nolasco Covered Member ID Nolasco Member ID Guarantor Name 10/01/2024 1 [facility] [id number] Capo Salgado [id number] Capo Salgado Notes Date Note Type Note Provider Name and Address Organization Details Recorded Time 10/01/2024 text/html moving here from [place] has a history of coronary artery disease status post CABG x4 subsequent graft closure with stenting done after surgery history of hypertension hyperlipidemia sleep apnea but does not wear device diabetes and recently taken off work for FMLA because of anxiety and depression now no SI or HI but he was just hard to focus he could not get around and up in the morning because he just wanted to go back to bed and had no interest in anything. That was about a week ago and he was not started on any medications. Meds he is not sure he is trying to get his records as we speak denies any allergies at this time surgeries coronary artery bypass grafting family history father of head aneurysm age 60 mother had pancreatic cancer. Socially denies smoking or vaping he does drink 3-4 drinks. He was in the [employer] business Wade Rahman MD Attn: Accounting,[address] [facility], [place], [address], [facility] 10/04/2024 16:28:36
--- OUTSIDE RECORDS SUMMARY | 2025-02-19 08:36 | XMS_ITS ---
Author Organization [facility] [employer] [facility] Address [facility] [address] [address] Care Team Providers Care Monotype Operator Name Role Phone RichChago currie Unavailable [phone] Kathie Doyle Unavailable [phone] REASON FOR VISIT F/u Social History Sex Assigned At : Social History Observation Description Sex Assigned At Male Encounters Encounter Location Date Provider Diagnosis [facility] [place] [address] [address] [facility] [[email or web address] [address] [address] 02/18/2025 Kathie Doyle Plan Of Treatment No Information Progress Notes * KAMALJIT PARKERDOB:1965 ( 59 yo M)Acc No.[id number]:02/18/2025 Patient: KAMALJIT CLEMONS Provider: TOÑO MORTON :1965 A ge:59 Y S ex:Male Date:02/18/2025 Phone: Address:[address] [place], [place] [id number] Subjective: * Chief Complaints: * 1 . F/u. * Medical History: Objective: * Vitals: Assessment: Plan: * Treatment: * Procedure Codes: N S NO SHOW * Billing Information: * Visit Code: * Procedure Codes: NS NO SHOW. * Sign off status: Completed true * Provider: TOÑO MORTON Date: 02/18/2025 Generated for Timboi ng/Fadarcyg/eTransmitting on: 02/19/2025 08:35 AM CDT
--- NOTE | 2025-02-19 09:54 | ADMGEN ---
This patient, Capo Salgado, was admitted to Medical Room 252-01. Patient/family oriented to hospital policies and general routines including ID bracelet, bed and alarms, visiting hours, pain management, procedures, bathroom and other care routines, personal items, smoking policy, room service/diet, and visiting hours. Information on how to activate the Rapid Response Team has been discussed. Patient/Family are encouraged to report perceived risks to care and to ask questions if they do not understand what they are told or what they should do.
--- NOTE | 2025-02-19 13:17 | PM.IMHP ---
H&P: HPI History of Present Illness Date/Time: 02/19/25 13:17 Chief Complaint: Tingling and numbness in the left arm Narrative: Patient is a 59-year-old gentleman with a past medical history of CABG on October 2020, 7 stent on August 2023. All his cardiac procedures were done at [facility] at [place], [place], obstructive sleep apnea, hypertension and hyperlipidemia presented to ED due to weakness/numbness, tingling in the left arm and tongue. Patient was previously living in the [place] but but moved to this area due to his group home but does part-time job at [employer]. Today while driving to work patient had episode of vomiting and not feeling well. Although he went to work he felt dizziness and trouble walking. He also felt his left arm numbness and tingling and numbness in the tongue. He has a chronic ringing in the ear but it was aggravated today. Patient also complains of headache. Head CTA:No significant vascular abnormality seen. Head CT:No significant abnormality seen. During the evaluation patient has no symptoms and no evidence of any neurological deficits. All the way patient does not have any neurological deficits during the presentation patient has a high discuss for stroke due to diabetes, hypertension and hyperlipidemia. Ordered MRI without contrast. Will also order carotid ultrasound and echocardiogram with bubble study. Ordered HbA1c and lipid panel as well. Speech therapy,PT/OT consulted as well. Review of Systems Review of Systems: A 10 system review of systems was completed on the patient and is negative except for what is stated in the HPI. Nursing and ancillary documentation was reviewed. [facility] Family History Family History (Updated 02/19/25 @ 10:37 by Sánchez Gilbert RN) Father DVT (deep venous thrombosis) Aortic aneurysm and dissection Brain aneurysm Mother Pancreatic cancer Sibling Diabetes mellitus Social History Social History Smoking packs per day: 1 Smoking cigarettes per day: 20.0 Years smoked: 40 Smoking pack-years: 40.00 Smoking status: Former smoker Tobacco type: cigarettes Alcohol intake: current Drinks per week: 28 Substance use: current Substance use type: marijuana Do You Feel Safe in your Home?: Yes Lack of Transportation: No Lack of Food: Never True Current Housing: I Have Housing Concerned About Future Housing: No Difficulty Paying Gas/Electric Bills: No Difficulty Paying for Meds: No Currently Unemployed: No Education: High School Diploma/GED Difficulty w/ Childcare or Family Care: No Spiritual care concerns: No Meds Home Medications and Allergies Home Medications ?Medication ?Instructions ?Recorded ?Confirmed ?Type amlodipine 10 mg tablet 10 mg PO DAILY 02/19/25 02/19/25 History buspirone 10 mg tablet 10 mg PO TID 02/19/25 02/19/25 History empagliflozin 10 mg tablet 10 mg PO DAILY 02/19/25 02/19/25 History (Jardiance) enalapril maleate 10 mg tablet 20 mg PO DAILY 02/19/25 02/19/25 History ezetimibe 10 mg tablet 10 mg PO DAILY 02/19/25 02/19/25 History fenofibrate 160 mg tablet 160 mg PO DAILY 02/19/25 02/19/25 History hydroxyzine HCl 25 mg tablet 25 mg PO TID PRN anxiety 02/19/25 02/19/25 History metformin 500 mg tablet,extended 1,000 mg PO BID 02/19/25 02/19/25 History release 24 hr metoprolol succinate 100 mg 100 mg PO HS 02/19/25 02/19/25 History tablet,extended release 24 hr pantoprazole 40 mg tablet,delayed 40 mg PO HS 02/19/25 02/19/25 History release ranolazine 1,000 mg 1,000 mg PO Q12H 02/19/25 02/19/25 History tablet,extended release,12 hr rosuvastatin 20 mg tablet 20 mg PO DAILY 02/19/25 02/19/25 History semaglutide 2 mg/dose (8 mg/3 mL) 2 mg subcut WEEKLY 02/19/25 02/19/25 History subcutaneous pen injector (Ozempic) ticagrelor 90 mg tablet (Brilinta) 90 mg PO Q12H 02/19/25 02/19/25 History trazodone 50 mg tablet 50 mg PO HS PRN insomnia 02/19/25 02/19/25 History Allergies Allergy/AdvReac Type Severity Reaction Status Date / Time No Known Allergies Allergy Verified 02/19/25 10:03 Vital Signs Vital Signs - 24 hr 02/19/25 07:32 02/19/25 07:36 02/19/25 08:50 Temperature 98 F Pulse Rate 80 80 75 Respiratory Rate 14 15 13 Blood Pressure 150/93 H 150/93 H 136/78 Pulse Oximetry 99 99 96 Oxygen Delivery Room Air 02/19/25 12:00 Temperature Pulse Rate 83 Respiratory Rate Blood Pressure Pulse Oximetry Oxygen Delivery Exam Narrative: GENERAL: Well-appearing, well-nourished, and in no acute distress. HEAD: Normocephalic, atraumatic. EYES: PERRLA and EOMI. ENT: Nares clear, no rhinorrhea or epistaxis. Mucous membranes moist. NECK: Supple. CHEST: Clear to auscultation. No respiratory distress. HEART: Regular rate and rhythm. No murmur heard. Normal peripheral pulses. ABDOMEN: Soft, nontender, nondistended, normal active bowel sounds. EXTREMITIES: Normal range of motion. No edema. SKIN: Warm, dry, no rash. NEURO: No focal deficits except for slight decrease in sensation on the left upper arm and left face. Alert and oriented x3. PSYCH: Normal mood and affect. H&P: Results Labs Labs: Short CBC 02/19/25 Range/Units 07:20 WBC 5.0 (4.5-10.0) K/mm3 Hgb 15.5 (14.0-18.0) g/dL Hct 45.5 (42.0-52.0) % Plt Count 171 (150-375) k/mm3 BMP 02/19/25 02/19/25 07:20 07:24 Sodium 140 Potassium 4.1 Chloride 103 Carbon Dioxide 25 BUN 14 Creatinine 1.04 1.20 Glucose 152 H Calcium 9.3 Cardiac Enzymes 02/19/25 Range/Units 07:20 Troponin I < 0.012 (0.000-0.034) ng/mL Liver Function 02/19/25 Range/Units 07:20 Total Bilirubin 0.8 (0.2-1.3) mg/dL AST 34 (17-59) U/L ALT 42 (6-50) U/L Alkaline Phosphatase 70 (38-126) U/L Albumin 4.6 (3.5-5.1) g/dL Assessment and Plan Assessment and plan (1) CAD (coronary artery disease): Code(s): I25.10 - Atherosclerotic heart disease of [place] coronary artery without angina pectoris Status: Acute (2) Diabetes mellitus: Code(s): E11.9 - Type 2 diabetes mellitus without complications Status: Acute (3) HTN (hypertension): Code(s): I10 - Essential (primary) hypertension Status: Acute (4) HLD (hyperlipidemia): Code(s): E78.5 - Hyperlipidemia, unspecified Status: Acute (5) CVA (cerebral vascular accident): Code(s): I63.9 - Cerebral infarction, unspecified Status: Acute Plan CVA -MRI Brain: Pending -CTA neck: No significant abnormality -CT Head : No significant abnormality -NIHS 0 -echo ordered with bubble study to rule out PFO -aspirin and statin -LDL goal less than 70 -if neurology recommends will add aspirin. -permissive hypertension less than 220/120 if no thrombolytics. -neurology consulted awaiting recommendation -speech and swallow evaluation -PT/OT eval -Bedside swallow eval CAD History of CABG and 7 stents Continue Brilinta 90 mg p.o. b.i.d. DM Sliding scale Titrate as needed Hold metformin, ozempic Order HbA1c Hypertension Permissive hypertension less than 220/120 Lipid panel pending Hyperlipidemia Rosuvastatin 20 mg p.o. q.d. Ezetimibe 10mg PO QD Panic attacks Continue buspirone 10 mg p.o. t.i.d. Insomnia Continue trazodone 50 mg p.o. HS DVT prophylaxis after MRI results Hospitalist MIPS Advance Care Plan I have confirmed that the patient's Advanced Care Plan is present, code status is documented, or surrogate decision maker is listed in patient medical record.: Yes Medication Reconciliation I have utilized all available resources to obtain, update and review the patients current medications (includes all prescriptions, OTC, herbals, cannabis, and nutritional supplements).: Yes
--- NOTE | 2025-02-19 15:37 | WPDNEURCNPN ---
Assessment and Plan Assessment and plan (1) CVA (cerebral vascular accident): Code(s): I63.9 - Cerebral infarction, unspecified Status: Acute Assessment and Plan: The symptoms involve his left side of the face and left upper limb and lasted for nearly 8 hours and now improving. We should follow up the results MRI of the brain. Have also check the lipid profile. (2) HTN (hypertension): Code(s): I10 - Essential (primary) hypertension Status: Acute (3) CAD (coronary artery disease): Code(s): I25.10 - Atherosclerotic heart disease of [place] coronary artery without angina pectoris Status: Acute (4) Diabetes mellitus: Code(s): E11.9 - Type 2 diabetes mellitus without complications Status: Acute (5) HLD (hyperlipidemia): Code(s): E78.5 - Hyperlipidemia, unspecified Status: Acute Plan The goal should be to keep LDL under 65 and if we need to adjust the dose of rosuvastatin that can be done. The patient is otherwise doing fairly well. CT scan of brain and CT angiogram head and neck were reviewed and these did not show any significant abnormalities. Results of MRI of the brain are pending. Consult date: 02/19/25 HPI: Capo Salgado is a 59 year old male presented to the hospital with the numbness of the left face and left upper limb which started around 630 in the morning. Apparently he was already awake at that time. Numbness involved leg left half of the tongue and later on also the left half of his chin. He did not have any abnormal feeling in the trunk or the left leg. No prior history of stroke however he does have extensive history of cardiac disease. He has had coronary artery bypass grafting and 6 cyst or 7 stents. 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 In the ER his NIH score was 0. He has a CT scan of brain and CT angiogram head and neck were normal. He was also having headache. He felt disoriented and has a sense of imbalance and he was really concerned about it. His blood pressure at the time of presentation was 150/93 is afebrile. At the time when I saw him in the afternoon he was feeling better. His symptoms are new going away. He is waiting for MRI of the brain. It was noted that he also has history of diabetes mellitus. Prior to admission he was on Brilinta and rosuvastatin. Review of Systems Review of Systems: All systems reviewed & are unremarkable except as noted in HPI and below [facility] Family History Family History (Updated 02/19/25 @ 10:37 by Sánchez Gilbert RN) Father DVT (deep venous thrombosis) Aortic aneurysm and dissection Brain aneurysm Mother Pancreatic cancer Sibling Diabetes mellitus Social History Social History Smoking packs per day: 1 Smoking cigarettes per day: 20.0 Years smoked: 40 Smoking pack-years: 40.00 Smoking status: Former smoker Tobacco type: cigarettes Alcohol intake: current Drinks per week: 28 Substance use: current Substance use type: marijuana Do You Feel Safe in your Home?: Yes Lack of Transportation: No Lack of Food: Never True Current Housing: I Have Housing Concerned About Future Housing: No Difficulty Paying Gas/Electric Bills: No Difficulty Paying for Meds: No Currently Unemployed: No Education: High School Diploma/GED Difficulty w/ Childcare or Family Care: No Spiritual care concerns: No Meds Home Medications and Allergies Home Medications ?Medication ?Instructions ?Recorded ?Confirmed ?Type amlodipine 10 mg tablet 10 mg PO DAILY 02/19/25 02/19/25 History buspirone 10 mg tablet 10 mg PO TID 02/19/25 02/19/25 History empagliflozin 10 mg tablet 10 mg PO DAILY 02/19/25 02/19/25 History (Jardiance) enalapril maleate 10 mg tablet 20 mg PO DAILY 02/19/25 02/19/25 History ezetimibe 10 mg tablet 10 mg PO DAILY 02/19/25 02/19/25 History fenofibrate 160 mg tablet 160 mg PO DAILY 02/19/25 02/19/25 History hydroxyzine HCl 25 mg tablet 25 mg PO TID PRN anxiety 02/19/25 02/19/25 History metformin 500 mg tablet,extended 1,000 mg PO BID 02/19/25 02/19/25 History release 24 hr metoprolol succinate 100 mg 100 mg PO HS 02/19/25 02/19/25 History tablet,extended release 24 hr pantoprazole 40 mg tablet,delayed 40 mg PO HS 02/19/25 02/19/25 History release ranolazine 1,000 mg 1,000 mg PO Q12H 02/19/25 02/19/25 History tablet,extended release,12 hr rosuvastatin 20 mg tablet 20 mg PO DAILY 02/19/25 02/19/25 History semaglutide 2 mg/dose (8 mg/3 mL) 2 mg subcut WEEKLY 02/19/25 02/19/25 History subcutaneous pen injector (Ozempic) ticagrelor 90 mg tablet (Brilinta) 90 mg PO Q12H 02/19/25 02/19/25 History trazodone 50 mg tablet 50 mg PO HS PRN insomnia 02/19/25 02/19/25 History Allergies Allergy/AdvReac Type Severity Reaction Status Date / Time No Known Allergies Allergy Verified 02/19/25 10:03 Vital Signs Vital Signs - 24 hr 02/19/25 07:32 02/19/25 07:36 02/19/25 08:50 Temperature 98 F Pulse Rate 80 80 75 Respiratory Rate 14 15 13 Blood Pressure 150/93 H 150/93 H 136/78 Pulse Oximetry 99 99 96 Oxygen Delivery Room Air 02/19/25 12:00 02/19/25 13:54 Temperature 97.6 F Pulse Rate 83 82 Respiratory Rate 18 Blood Pressure 143/76 H Pulse Oximetry 98 Oxygen Delivery Exam Const: General: cooperative, well developed and alert Orientation/consciousness: patient oriented x3 HENMT: Head: atraumatic Mouth: Yes oropharynx normal Eyes: Alignment and Position: position normal Pupils: Equal, round and reactive pupils present EOM: EOMs intact bilaterally Neck: Neck: supple Resp: Effort & Inspection: normal respiratory effort Cardio: Rate: regular rate Rhythm: regular rhythm Neuro: General: patient oriented x3 Cranial nerves: Yes CN's II-XII intact bilaterally, Yes facial sensation intact/muscles of mastication intact, Yes Equal, round and reactive pupils present, Yes facial symmetry and Yes Midline tongue present Cognition (Neuro): normal cognition Speech: normal speech Motor exam (neuro): 5/5 motor strength present throughout Sensory Exam: normal sensation Coordination: [id number] test normal and Normal rapid alternating movements of the distal upper extremity present (Neuro) Results Labs 02/19/25 07:20 02/19/25 07:24 Labs: Short CBC 02/19/25 Range/Units 07:20 WBC 5.0 (4.5-10.0) K/mm3 Hgb 15.5 (14.0-18.0) g/dL Hct 45.5 (42.0-52.0) % Plt Count 171 (150-375) k/mm3 BMP 02/19/25 02/19/25 07:20 07:24 Sodium 140 Potassium 4.1 Chloride 103 Carbon Dioxide 25 BUN 14 Creatinine 1.04 1.20 Glucose 152 H Calcium 9.3 Cardiac Enzymes 02/19/25 Range/Units 07:20 Troponin I < 0.012 (0.000-0.034) ng/mL Liver Function 02/19/25 Range/Units 07:20 Total Bilirubin 0.8 (0.2-1.3) mg/dL AST 34 (17-59) U/L ALT 42 (6-50) U/L Alkaline Phosphatase 70 (38-126) U/L Albumin 4.6 (3.5-5.1) g/dL
[2025-02-19 16:56] LABS: Hemoglobin A1C 6.3 % (<5.7)
[2025-02-19 17:15] LABS: Cholesterol 158 mg/dL (0-200); HDL Direct 44 mg/dL; Triglycerides 219 mg/dL (<150)
[2025-02-19 17:25] LABS: LDL Cholesterol Direct 81 mg/dL
[2025-02-19] MEDS: METOPROLOL SUCCINATE EXT REL 100 MG TABCR PO (21:15)
[2025-02-19] MEDS: RANOLAZINE 500 MG TAB.ER.12H 1000 MG PO (21:16)
[2025-02-19] MEDS: PANTOPRAZOLE 40 MG TABLET PO (21:16)
[2025-02-19] MEDS: TICAGRELOR 90 MG TABLET PO (21:16)
[2025-02-19] MEDS: traZODone HCL 50 MG TABLET PO (21:16)
[2025-02-19] MEDS: busPIRone HCL 10 MG TABLET PO (21:17)
[2025-02-20] VITALS: PULSE 78
[2025-02-20 04:00] VITALS: PULSE 75
[2025-02-20 05:21] LABS: Hemoglobin 14.9 g/dL (14.0-18.0); Mean Corpuscular HGB Conc 34.7 g/dl (32-36); Mean Corpuscular Hemoglobin 33.9 pg (26-34); Mean Corpuscular Volume 97.9 fl (80-100); Platelet Count Result 161 k/mm3 (150-375); Red Blood Count 4.39 M/mm3 (4.6-6.20); Red Cell Distribution Width 12.3 % (11.5-14.5); White Blood Count 5.7 K/mm3 (4.5-10.0)
[2025-02-20 05:31] VITALS: BP 125/72; PULSE 71; RESP 16; TEMP 36.6; O2SAT 98
[2025-02-20 05:45] LABS: Alanine Aminotransferase 39 U/L (6-50); Albumin Level 4.3 g/dL (3.5-5.1); Alkaline Phosphatase 52 U/L (38-126); Anion Gap 9 mmol/L (4-12); Aspartate Amino Transferase 28 U/L (17-59); Bilirubin,Total 0.7 mg/dL (0.2-1.3); Blood Urea Nitrogen 15 mg/dL (9-20); Calcium 9.1 mg/dL (8.4-10.2); Carbon Dioxide 24 mmol/L (22-30); Chloride 107 mmol/L (98-107); Estimated CRCL calculation 76 ml/min; Estimated Glomerular Filt Rate > 60; Glucose 121 mg/dL (65-110); Sodium 140 mmol/L (137-145)
[2025-02-20] MEDS: busPIRone HCL 10 MG TABLET PO (05:50)
--- NOTE | 2025-02-20 08:16 | PCSTNOTE ---
Attempted Bedside swallow evaluation; pt stated he has been eating and drinking without difficulty and does not feel test is necessary. Order canceled.
[2025-02-20] MEDS: RANOLAZINE 500 MG TAB.ER.12H 1000 MG PO (08:36)
[2025-02-20] MEDS: ASPIRIN 81 MG ENTERIC TABLET PO (08:36)
[2025-02-20] MEDS: FENOFIBRATE NANOCRYSTALLIZED 145 MG TABLET PO (08:36)
[2025-02-20] MEDS: TICAGRELOR 90 MG TABLET PO (08:36)
[2025-02-20] MEDS: ENALAPRIL MALEATE 10 MG TABLET 20 MG PO (08:37)
[2025-02-20] MEDS: EMPAGLIFLOZIN 10 MG TABLET PO (08:37)
[2025-02-20] MEDS: EZETIMIBE 10 MG TABLET PO (08:37)
[2025-02-20] MEDS: amLODIPine BESYLATE 10 MG TABLET PO (08:37)
[2025-02-20] MEDS: ROSUVASTATIN 20 MG TABLET PO (08:37)
--- NOTE | 2025-02-20 10:23 | P.PNIM_ITS ---
Progress Note: A&P Assessment and Plan (1) CAD (coronary artery disease): Code(s): I25.10 - Atherosclerotic heart disease of [place] coronary artery without angina pectoris Status: Acute (2) Diabetes mellitus: Code(s): E11.9 - Type 2 diabetes mellitus without complications Status: Acute (3) HTN (hypertension): Code(s): I10 - Essential (primary) hypertension Status: Acute (4) HLD (hyperlipidemia): Code(s): E78.5 - Hyperlipidemia, unspecified Status: Acute (5) CVA (cerebral vascular accident): Code(s): I63.9 - Cerebral infarction, unspecified Status: Acute Plan CVA -MRI Brain: no acute changes -CTA neck: No significant abnormality -echo pending -aspirin and statin -LDL goal less than 70 -permissive hypertension less than 220/120 if no thrombolytics. PT/OT neurology following CAD History of CABG and 7 stents Continue Brilinta 90 mg p.o. b.i.d. DM Sliding scale Titrate as needed Hold metformin, ozempic Order HbA1c Hypertension Permissive hypertension less than 220/120 Lipid panel pending Hyperlipidemia Rosuvastatin 20 mg p.o. q.d. Ezetimibe 10mg PO QD Panic attacks Continue buspirone 10 mg p.o. t.i.d. Insomnia Continue trazodone 50 mg p.o. HS DVT prophylaxis on Sq Lovenox Subjective Date/time seen: 02/20/25 10:23 Interval history: Comfortable at bedside noted symptoms have resolved Awaiting ECHO Review of Systems Review of Systems: A 10 system review of systems was completed on the patient and is negative except for what is stated in the HPI. Nursing and ancillary documentation was reviewed. Exam Narrative: GENERAL: Well-appearing, well-nourished, and in no acute distress. HEAD: Normocephalic, atraumatic. EYES: PERRLA and EOMI. ENT: Nares clear, no rhinorrhea or epistaxis. Mucous membranes moist. NECK: Supple. CHEST: Clear to auscultation. No respiratory distress. HEART: Regular rate and rhythm. No murmur heard. Normal peripheral pulses. ABDOMEN: Soft, nontender, nondistended, normal active bowel sounds. EXTREMITIES: Normal range of motion. No edema. SKIN: Warm, dry, no rash. NEURO: No focal deficits except for slight decrease in sensation on the left upper arm and left face. Alert and oriented x3. PSYCH: Normal mood and affect. Objective Data Vital Signs Vital Signs: Vital Signs - 24 hr 02/19/25 12:00 02/19/25 13:54 02/19/25 16:00 Temperature 97.6 F Pulse Rate 83 82 82 Respiratory Rate 18 Blood Pressure 143/76 H Pulse Oximetry 98 Oxygen Delivery 02/19/25 16:10 02/19/25 20:00 02/19/25 20:40 Temperature Pulse Rate 88 Respiratory Rate Blood Pressure Pulse Oximetry 97 97 Oxygen Delivery Room Air Room Air 02/19/25 21:15 02/19/25 21:22 02/20/25 00:00 Temperature 98.2 F Pulse Rate 82 80 78 Respiratory Rate 18 Blood Pressure 129/74 Pulse Oximetry 98 Oxygen Delivery 02/20/25 04:00 02/20/25 05:31 Temperature 98 F Pulse Rate 75 71 Respiratory Rate 16 Blood Pressure 125/72 Pulse Oximetry 98 Oxygen Delivery Intake/Output Intake/Output: Intake & Output 02/17/25 02/18/25 02/19/25 02/20/25 23:59 23:59 23:59 23:59 Intake Total 360 560 Balance 360 560 Meds/Results Medications: Active Medications Generic Name Dose Route Start Last Admin Trade Name Freq PRN Reason Stop Dose Admin Amlodipine Besylate 10 mg 02/20/25 09:00 02/20/25 08:37 Amlodipine Besylate 10 Mg Tablet PO 10 mg DAILY BEN Administration Aspirin 81 mg 02/20/25 09:00 02/20/25 08:36 Aspirin 81 Mg Enteric Tablet PO 81 mg QAM BEN Administration Buspirone HCl 10 mg 02/19/25 22:00 02/20/25 05:50 Buspirone Hcl 10 Mg Tablet PO 10 mg Q8HR BEN Administration Ezetimibe 10 mg 02/20/25 09:00 02/20/25 08:37 Ezetimibe 10 Mg Tablet PO 10 mg DAILY BEN Administration Empagliflozin 10 mg 02/20/25 09:00 02/20/25 08:37 Empagliflozin 10 Mg Tablet PO 10 mg DAILY BEN Administration Enalapril Maleate 20 mg 02/20/25 09:00 02/20/25 08:37 Enalapril Maleate 10 Mg Tablet PO 20 mg DAILY BEN Administration Fenofibrate 145 mg 02/20/25 09:00 02/20/25 08:36 Fenofibrate Nanocrystallized 145 Mg Tablet PO 145 mg QAM BEN Administration Hydroxyzine HCl 25 mg 02/19/25 13:34 Hydroxyzine Hcl 25 Mg Tablet PO TID PRN anxiety Metoprolol Succinate 100 mg 02/19/25 21:00 02/19/25 21:15 Metoprolol Succinate Ext Rel 100 Mg Tabcr PO 100 mg HS BEN Administration Pantoprazole Sodium 40 mg 02/19/25 21:00 02/19/25 21:16 Pantoprazole 40 Mg Tablet PO 40 mg HS BEN Administration Perflutren Lipid Microsphere 0 ml 02/19/25 13:26 Perflutren Lipid Microspheres 1.5 Ml Vial Diluted To 10 Ml Total Volume IV PUSH 02/22/25 13:27 ONCE PRN adequate visualization Protocol Ranolazine 1,000 mg 02/19/25 21:00 02/20/25 08:36 Ranolazine 500 Mg Tab.Er.12h PO 1,000 mg Q12HR BEN Administration Rosuvastatin Calcium 20 mg 02/20/25 09:00 02/20/25 08:37 Rosuvastatin 20 Mg Tablet PO 20 mg DAILY BEN Administration Ticagrelor 90 mg 02/19/25 21:00 02/20/25 08:36 Ticagrelor 90 Mg Tablet PO 90 mg Q12HR BEN Administration Trazodone HCl 50 mg 02/19/25 13:34 02/19/25 21:16 Trazodone Hcl 50 Mg Tablet PO 50 mg HS PRN Administration insomnia Radiology Results: ITS Impressions Head CT 02/19/25 07:28 Impression: No significant abnormality seen. Case discussed with Dr. Oconnor at 7:30 AM on 02/19/2025. Head/Neck CTA 02/19/25 07:38 Impression: No significant vascular abnormality seen. Chest X-Ray 02/19/25 08:04 Impression: 1: Left basilar airspace disease may represent pneumonia and/or atelectasis. 2: Cardiomegaly. Brain MRI 02/19/25 15:52 IMPRESSION: 1. Normal brain. No acute intracranial process. Labs Labs: Laboratory Results - last 24 hr 02/19/25 02/19/25 02/20/25 07:19 07:20 04:59 WBC 5.7 RBC 4.39 L Hgb 14.9 Hct 43.0 MCV 97.9 MCH 33.9 MCHC 34.7 RDW 12.3 Plt Count 161 MPV 10.0 Sodium 140 Potassium 4.0 Chloride 107 Carbon Dioxide 24 Anion Gap 9 BUN 15 Creatinine 1.06 Estim Creat Clear Calc 76 Estimated GFR > 60 Glucose 121 H Hemoglobin A1c 6.3 H Calcium 9.1 Total Bilirubin 0.7 AST 28 ALT 39 Alkaline Phosphatase 52 Total Protein 7.0 Albumin 4.3 Triglycerides 219 H Cholesterol 158 LDL Cholesterol Direct 81 HDL Direct 44
--- NOTE | 2025-02-20 12:11 | PCCARD ---
echo was not done due to patient leaving AMA @ 11:37 PER:NURSE
--- NOTE | 2025-02-20 15:34 | PM.DS ---
DS: Admitting Diagnosis Discharge Date 02/20/25 Admitting Diagnosis Left sided paresthesia DS: Discharge Diagnosis Discharge Diagnosis (1) TIA (transient ischemic attack): Code(s): G45.9 - Transient cerebral ischemic attack, unspecified Status: Acute DS: Summary Hospital Course Hospital Course: Patient is a 59-year-old gentleman with a past medical history of CABG on October 2020, 7 stent on August 2023,obstructive sleep apnea, hypertension and hyperlipidemia presented to ED due to weakness/numbness, tingling in the left arm and tongue. Head CTA:No significant vascular abnormality seen. Head CT:No significant abnormality seen. MRI unremarkable, A1c 6.3, LDL 81 patient was started ASpirin and statin and neurology was also consulted on encounter today patient mentioned he wanted to leave and discussed and counseled him about waiting for ECHO exam. However hours later i was informed he discharged AMA. He did mention his symptoms were resolved at the time of this encounter today. Time Spent with Patient Time attestation: Total time spent providing and/or coordinating discharge services: DS: Data Data Completed and Pending Labs on day of discharge: Labs from last 24 hours 02/20/25 02/19/25 02/19/25 04:59 07:20 07:19 WBC 5.7 RBC 4.39 L Hgb 14.9 Hct 43.0 MCV 97.9 MCH 33.9 MCHC 34.7 RDW 12.3 Plt Count 161 MPV 10.0 Sodium 140 Potassium 4.0 Chloride 107 Carbon Dioxide 24 Anion Gap 9 BUN 15 Creatinine 1.06 Estim Creat Clear Calc 76 Estimated GFR > 60 Glucose 121 H Hemoglobin A1c 6.3 H Calcium 9.1 Total Bilirubin 0.7 AST 28 ALT 39 Alkaline Phosphatase 52 Total Protein 7.0 Albumin 4.3 Triglycerides 219 H Cholesterol 158 LDL Cholesterol Direct 81 HDL Direct 44 Discharge Plan Discharge Attending physician on discharge: Tiffany Adorno Consulting providers: Irineo Washburn Discharging Clinician: Tiffany Adorno Patient Disposition: Left Against Medical Advice Activity: as tolerated Diet: as tolerated Patient Language: Upper Sorbian Discharge Medications: No Action amlodipine 10 mg tablet 10 mg PO DAILY buspirone 10 mg tablet 10 mg PO TID Jardiance 10 mg tablet 10 mg PO DAILY enalapril maleate 10 mg tablet 20 mg PO DAILY ezetimibe 10 mg tablet 10 mg PO DAILY fenofibrate 160 mg tablet 160 mg PO DAILY hydroxyzine HCl 25 mg tablet 25 mg PO TID PRN (Reason: anxiety) metformin 500 mg tablet extended release 24 hr 1,000 mg PO BID metoprolol succinate 100 mg tablet extended release 24 hr 100 mg PO HS pantoprazole 40 mg tablet,delayed release (DR/EC) 40 mg PO HS ranolazine 1,000 mg tablet extended release 12 hr 1,000 mg PO Q12H rosuvastatin 20 mg tablet 20 mg PO DAILY Ozempic 2 mg/dose (8 mg/3 mL) pen injector 2 mg SUBCUT WEEKLY Patient Comments: last taken 02/18/2025 Brilinta 90 mg tablet 90 mg PO Q12H trazodone 50 mg tablet 50 mg PO HS PRN (Reason: insomnia) Date of admission: 02/19/25 09:02 Primary Care Provider: AllaWade Admitting Provider: Raphael Pichardo Attending physician on admission: Raphael Pichardo Condition: Stable
== END 2025-02-20 11:50 | disposition left against medical advice (07) ==
LOC: ANHED 08:40 → ANH2MED 02-20 11:08
PROVIDERS: Admitting Provider General Practice; Emergency Provider Emergency Medicine; PCP Internal Medicine; Visit Provider Internal Medicine
DX: G45.9 Transient cerebral ischemic attack, unspecified (principal); I25.10 Atherosclerotic heart disease of native coronary artery without angina pectoris; E11.9 Type 2 diabetes mellitus without complications; I10 Essential (primary) hypertension; E78.5 Hyperlipidemia, unspecified; G47.33 Obstructive sleep apnea (adult) (pediatric); F41.0 Panic disorder [episodic paroxysmal anxiety]; G47.00 Insomnia, unspecified; Z79.02 Long term (current) use of antithrombotics/antiplatelets; Z79.84 Long term (current) use of oral hypoglycemic drugs; Z79.899 Other long term (current) drug therapy; Z87.891 Personal history of nicotine dependence; Z95.1 Presence of aortocoronary bypass graft; Z95.5 Presence of coronary angioplasty implant and graft
CPT/HCPCS: 36415; 70450; 70496; 70498; 70551; 71045; 80053; 80061; 82948; 83036; 84484; 85025; 85027; 85610; 85730; 93005; 99285; A9270; G0378; Q9967